=== PATIENT | male | born 1960 | race Caucasian/White ===

== ENCOUNTER 2016-11-27 15:03 | Inpatient (IN) | payer MEDICAID ==
[~2016-11-27] VITALS: Ht 170.2 cm; Wt 55.0 kg
[2016-11-27 15:12] VITALS: BP 103/54; PULSE 51; RESP 15; TEMP 97.9; O2SAT 97
[2016-11-27] MEDS ORDERED: SODIUM CHLORIDE 0.9% FLUSH 10 ML FLUSH IVF PRN (15:15)
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
[2016-11-27 15:26] VITALS: BP 103/54; PULSE 52; RESP 16; TEMP 97.9; O2SAT 98
--- NOTE | 2016-11-27 16:14 | RADRPT ---
EXAM DATE/TIME: 11/27/2016 16:06 [facility] COMPARISON: No previous studies available for comparison. INDICATIONS : Left side weakness for one day. RADIATION DOSE: 28.11 CTDIvol (mGy) MEDICAL HISTORY : Chronic obstructive pulmonary disease. SURGICAL HISTORY : None. ENCOUNTER: Initial ACUITY: 1 day PAIN SCALE: 0/10 LOCATION: cranial TECHNIQUE: Multiple contiguous axial images were obtained of the head. Using automated exposure control and adj ustment of the mA and/or kV according to patient size, radiation dose was kept as low as reasonably a chievable to obtain optimal diagnostic quality images. DICOM format image data is available electro nically for review and comparison. FINDINGS: CEREBRUM: Ill-defined hypodensity in the right basal ganglia centered about the posterior limb of the internal capsule. Mild diffuse cerebral atrophy. The ventricles are normal for degree of atrophy. No evidence of midline shift, mass lesion, hemorrhage or acute infarction. No extra-axial fluid collections are seen. POSTERIOR FOSSA: The cerebellum and brainstem are intact. The 4th ventricle is midline. The cerebellopontine angle i s unremarkable. EXTRACRANIAL: The visualized portion of the orbits is intact. SKULL: The calvaria is intact. No evidence of skull fracture. CONCLUSION: 1. Ill-defined hypodensity in the right basal ganglia centered about the posterior limb of internal c apsule which may reflect a lacunar infarct. Further evaluation may be performed with MRI if there is continued clinical uncertainty. Cisco ePte MD on November 27, 2016 at 16:09 Board Certified Radiologist. This report was verified electronically.
[2016-11-27 16:16] LABS: AUTOMATED NEUTROPHIL # 9.8 TH/MM3 (1.8-7.7); BASOPHIL % 0.3 % (0.0-2.0); EOSINOPHIL % 0.2 % (0.0-4.0); HEMATOCRIT 34.7 % (39.0-51.0); HEMO FLAGS DIFF FINAL; LYMPH % 10.2 % (9.0-44.0); LYMPHOCYTE # 1.3 TH/MM3 (1.0-4.8); MEAN CELL VOLUME 99.1 FL (80.0-100.0); MEAN CORPUSCULAR HGB CONC 35.3 % (32.0-36.0); MONO % 9.7 % (0.0-8.0); NEUT % 79.6 % (16.0-70.0); PLATELET COUNT 289 TH/MM3 (150-450); RED BLOOD COUNT 3.51 MIL/MM3 (4.50-5.90); RED CELL DISTRIBUTION WIDTH 12.8 % (11.6-17.2); WHITE BLOOD COUNT 12.4 TH/MM3 (4.0-11.0)
[2016-11-27 16:24] LABS: INTERNATIONAL NORMALIZED RATIO 0.9 RATIO; PROTHROMBIN TIME - PATIENT 9.9 SEC (9.8-11.6)
[2016-11-27 16:37] LABS: ALT (GPT) 21 U/L (12-78); ANION GAP 21 MEQ/L (5-15); AST (GOT) 36 U/L (15-37); BICARBONATE 17.2 MEQ/L (21.0-32.0); BLOOD UREA NITROGEN 70 MG/DL (7-18); CHLORIDE 86 MEQ/L (98-107); GLOMERULAR FILTRATION RATE 5 ML/MIN (>89); POTASSIUM 4.6 MEQ/L (3.5-5.1)
[2016-11-27 16:40] LABS: SODIUM (NA) 124 MEQ/L (136-145)
[2016-11-27 16:41] LABS: ALKALINE PHOSPHATASE 67 U/L (45-117); TOTAL BILIRUBIN ADULT 0.5 MG/DL (0.2-1.0)
[2016-11-27 17:09] LABS: CREATINE KINASE 776 U/L (39-308)
[2016-11-27] MEDS ORDERED: SODIUM CHLORID 0.9% 500 ML INJ 500 ML IV ONE ×2 (17:15→19:15)
[2016-11-27 17:22] LABS: CKMB 24.4 NG/ML (0.5-3.6)
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
[2016-11-27] MEDS ORDERED: SODIUM CHLORIDE 0.9% FLUSH 5 ML FLUSH IV FLUSH PRN (18:45)
[2016-11-27] MEDS ORDERED: LABETALOL HCL 100 MG/20 ML VIAL IV PRN (18:45)
[2016-11-27] MEDS ORDERED: DEXTROSE 50% IN WATER 50 ML VIAL(D50) IV PUSH PRN (18:45)
[2016-11-27] MEDS ORDERED: ASPIRIN 325 MG TAB PO ONE (18:45)
[2016-11-27] MEDS ORDERED: GLUCAGON 1 MG/ML VIAL OTHER PRN (18:45)
[2016-11-27] MEDS ORDERED: ONDANSETRON HCL 4 MG/2 ML VIAL IV PRN (19:15)
[2016-11-27] MEDS ORDERED: LORazepam 2 MG/ML VIAL IV PUSH PRN ×4 (19:15)
[2016-11-27] MEDS ORDERED: FLUMAZENIL 0.5 MG/5 ML VIAL IV PUSH PRN (19:15)
[2016-11-27] MEDS ORDERED: LORazepam 1 MG TAB PO PRN (19:15)
[2016-11-27] MEDS ORDERED: LORazepam 2 MG TAB PO PRN (19:15)
[2016-11-27 19:39] LABS: BACTERIA, URINE FEW /hpf; BLOOD, URINE SMALL (NEG); COMMENT (UR) CULTURE INDICATED; CULTURE IF INDICATED CULTURE INDICATED; GLUCOSE,URINE NEG (NEG); HYALINE CAST, URINE 99 /lpf (RARE); KETONE, URINE NEG (NEG); MUCUS URINE FEW /lpf (OCC); NITRITE,URINE NEG (NEG); SQUAMOUS EPITHELIAL CELL URINE <1 /hpf (0-5); URINE COLOR YELLOW (YELLW/STRAW)
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
[2016-11-27] MEDS: HEPARIN SODIUM - SQ 10,000 UNITS/ML VIAL SQ SCH (19:59)
[2016-11-27] MEDS: SODIUM CHLOR 0.9% 1000 ML INJ 1,000 ML IV SCH (19:59)
--- NOTE | 2016-11-27 20:31 | RADRPT ---
EXAM DATE/TIME: 11/27/2016 20:17 [facility] COMPARISON: No previous studies available for comparison. INDICATIONS : Patient fell last night- pain and numbness. MEDICAL HISTORY : None. SURGICAL HISTORY : None. ENCOUNTER: Initial ACUITY: 2 days PAIN SCORE: 10/10 LOCATION: Abdomen. FINDINGS: Supine view of the abdomen was performed. There are bowel anastomosis sutures in the left midabdomen and in the lower pelvis bilaterally. There is air within a mildly distended distal transverse colon measuring up to 6.5 cm in diameter. No other areas of potentially dilated bowel is seen. Free air is not seen. There is a calcified granuloma at the medial right lung base. CONCLUSION: Nonspecific bowel gas pattern with mild prominence of the distal transverse colon. Romel Pool MD on November 27, 2016 at 20:28 Board Certified Radiologist. This report was verified electronically.
--- NOTE | 2016-11-27 20:32 | RADRPT ---
EXAM DATE/TIME: 11/27/2016 20:06 [facility] COMPARISON: No previous studies available for comparison. INDICATIONS : Pain and numbness post fall. MEDICAL HISTORY : None. SURGICAL HISTORY : None. ENCOUNTER: Initial ACUITY: 1 day PAIN SCORE: 0/10 LOCATION: Neck. FINDINGS: Cervical spondylosis is noted at C5-C6 and to a lesser extent C4-C5 and C6-C7. No acute fracture or prevertebral soft tissue swelling is noted. The bony relationship and alignment between C1 and C2 is well maintained. CONCLUSION: 1. Cervical spondylosis at C5-C6 and to a lesser extent at C4-C5 and C6-C7. 2. No acute fracture or prevertebral soft tissue swelling. Benjy Murphy MD on November 27, 2016 at 20:29 Board Certified Radiologist. This report was verified electronically.
[2016-11-27] MEDS: INSULIN ASPART SUPPLEMENTAL SCALE SQ SCH (21:00)
[2016-11-27] MEDS: SODIUM CHLORIDE 0.9% FLUSH 5 ML FLUSH IV FLUSH SCH (21:00)
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
[2016-11-27 22:08] LABS: ALCOHOL LESS THAN 3 MG/DL (0-5)
[2016-11-27 23:29] LABS: CREATINE KINASE 733 U/L (39-308)
[2016-11-28] VITALS (12 sets, daily range): BP systolic 101–142; BP diastolic 58–71; PULSE 60–70; RESP 18–20; TEMP 98.1–99.4; O2SAT 96–100
[2016-11-28] MEDS: ATORVASTATIN 40 MG TAB PO SCH ×2 (00:18→22:54)
[2016-11-28] MEDS: cefTRIAXone INJ 1,000 MG in SODIUM CHLORIDE 0.9% INJ 100 ML IV SCH (02:18)
[2016-11-28] MEDS: HEPARIN SODIUM - SQ 10,000 UNITS/ML VIAL SQ SCH ×3 (02:20→18:10)
[2016-11-28 04:26] LABS: AUTOMATED NEUTROPHIL # 8.8 TH/MM3 (1.8-7.7); BASOPHIL # 0.1 TH/MM3 (0-0.2); BASOPHIL % 0.6 % (0.0-2.0); EOSINOPHIL % 0.2 % (0.0-4.0); HEMATOCRIT 33.4 % (39.0-51.0); HEMO FLAGS DIFF FINAL; LYMPH % 11.9 % (9.0-44.0); LYMPHOCYTE # 1.4 TH/MM3 (1.0-4.8); MEAN CELL VOLUME 100.7 FL (80.0-100.0); MEAN CORPUSCULAR HEMOGLOBIN 33.9 PG (27.0-34.0); MEAN CORPUSCULAR HGB CONC 33.6 % (32.0-36.0); NEUT % 76.3 % (16.0-70.0); PLATELET COUNT 256 TH/MM3 (150-450); RED BLOOD COUNT 3.32 MIL/MM3 (4.50-5.90); RED CELL DISTRIBUTION WIDTH 12.5 % (11.6-17.2); WHITE BLOOD COUNT 11.5 TH/MM3 (4.0-11.0)
[2016-11-28 04:47] LABS: BICARBONATE 16.9 MEQ/L (21.0-32.0); HDL CHOLESTEROL 39.3 MG/DL (40.0-60.0); POTASSIUM 4.3 MEQ/L (3.5-5.1)
[2016-11-28 05:18] LABS: CKMB 23.4 NG/ML (0.5-3.6)
[2016-11-28] MEDS: INSULIN ASPART SUPPLEMENTAL SCALE SQ SCH ×4 (06:11→22:55)
--- NOTE | 2016-11-28 07:01 | HHI.FPPN ---
Subjective Remarks Kosta Montiel edith 56yo gentleman with h/o HTN, tobacco abuse, and alcohol abuse admitted for left sided weakness involving his left upper and left lower extremities. The day prior to admission, he fell and hit the left side of his face. He endorses LOC, and then when he woke up 7 minutes later, he was unable to move the left side of his body and experienced numbness there. No difficulty with his speech, no changes in vision, no urinary incontinence. ROS: No chest pain, no SOB. + left sided weakness. PMH/PSxH/SocHx/FamHx: Per resident H&P. Significant for: HTN. Exp lap with colon resection / ostomy placement; subsequent colostomy reversal. Mother with CVA, father with alcohol abuse. Visiting from [place]. Smokes 1/2 - 1 PPD. Drinks 12 beers per day, with last drink yesterday morning. He does report a history of tremors with alcohol cessation sometimes. Polysubstance abuse (UDS + for cocaine, amphetamines, and opiates). Objective Vitals Vital Signs Date Time Temp Pulse Resp B/P (MAP) Pulse Ox O2 Delivery O2 Flow Rate FiO2 11/28/16 04:54 98 Nasal Cannula 2.00 11/28/16 04:00 98.4 70 20 118/62 (80) 98 11/28/16 03:05 64 11/28/16 00:00 98.1 63 20 113/58 (76) 99 11/27/16 15:26 97.9 52 16 103/54 (70) 98 Nasal Cannula 2.00 11/27/16 15:12 97.9 51 15 103/54 (70) 97 I/O 11/27/16 11/27/16 11/27/16 11/28/16 11/28/16 11/28/16 07:00 15:00 23:00 07:00 15:00 23:00 Intake Total 500 ml Balance 500 ml Intake IV Total 500 ml Result Diagram: 11/28/1633911/28/16 0340 Objective Remarks GENERAL: in NAD, no resp distress, nontoxic HEENT: NCAT, EOMI, no scleral icterus, no conjunctival injection. MMM. Edentulous. NECK: Supple, no carotid bruits. No meningeal signs. CV: RRR, S1 S2. No murmurs. CHEST/PULM: Coarse sounds initially, which clear after coughing. Mild end exp wheeze at bases. No retractions, no accessory muscle use. ABD/GI: +BS, soft, nontender, nondistended. EXT: 2+ DP pulses. No edema. No calf tenderness. : No CVAT. Sotelo catheter in place, draining clear yellow urine. NEURO: Awake, alert. 3/5 muscle strength in upper extremity and lower extremity. Left facial numbness. Cerebellum intact with finger to nose with right hand. SKIN: No rashes, no jaundice. PSYCH: Mood and affect are appropriate. Speech fluent. Does not appear to respond to internal stimuli. A/P Assessment and Plan Mr. Montiel is a 56 yo M who presents to [facility] with suspected left sided stroke and renal failure: Attending Attestation Patient seen, examined, and discussed with resident team. The patient has been seen and examined. The chart and all resident notes have been reviewed. I agree that inpatient care is appropriate and that a two midnight stay is expected for the reasons documented in the resident history and physical. I have discussed this with the resident and certify the resident s order for inpatient admission. Problem List: (1) CVA (cerebral vascular accident) ICD Codes: I63.9 - Cerebral infarction, unspecified Status: Acute Plan: Acute stroke. Imaging: * CT head 11/27/16: Ill-defined hypodensity in right basal ganglia centered about the posterior limb of the internal capsule which may reflect a lacunar infarct. * Brain MRI 11/27/16: acute infarction right basal ganglia; non-specific white- matter changes * Carotid artery US 11/27/16: Mild amount of plaque. No hemodynamically significant stenosis. * Head MRA 11/28/16: 1. Neither vertebral artery is identified. There are PICAs present, presumably the vertebrals terminate in a PICA. The basilar is not evident and presumed occluded/absent. This is possible congenital basis as both posterior cerebrals are sizable vessels. 2. The carotid circulation is widely patent. The anterior and middle cerebral circulation is widely patent. * Echo: pending Appreciate neurology and PM&R. PT/OT/Speech therapy evaluation. Lipid profile reviewed. On Statin. (2) Renal failure ICD Codes: N19 - Unspecified kidney failure Status: Acute Plan: Initial Cr 10.05 w/ BUN 70. Improved somewhat overnight. Cocaine, amphetamine abuse present on UDS Sotelo placed; ~300ml output initially. -Nephrology consulted; appreciate recs. -Will continue IVF at 70ml/hr until evaluation by Nephrology -Continue to trend BMP and CK Renal US: WNL. (3) HTN (hypertension) ICD Codes: I10 - Essential (primary) hypertension Plan: Impression: History of HTN on Atenolol and Lisinopril as an outpatient -Will allow permissive HTN at this time and use Labetalol for severe HTN w/ SBP >220mmHg (4) Alcoholism ICD Codes: F10.20 - Alcohol dependence, uncomplicated Status: Chronic Plan: Impression: Patient reports ~12 beers a night. MCV 99 on admission. No signs of withdrawal at this time -Will place on CIWA -Will give oral vitamin supplementation Of note, last drink 11/27/16 AM (5) Polysubstance abuse ICD Codes: F19.10 - Other psychoactive substance abuse, uncomplicated Status: Chronic Plan: Impression: No reported illicit substance use, but reports he was on "vacation". He denies any IV drug use. UDS positive for cocaine, amphetamines, and opiates -echocardiogram will evaluate for possible embolic process causing CVA and/or renal pathology (6) Abnormal urinalysis ICD Codes: R82.90 - Unspecified abnormal findings in urine Status: Acute Plan: Impression: UA with 36 WBC, few bacteria, nitrites negative, leukocyte esterase negative. Specimen catheterized; sotelo somewhat difficult to insert/ suggestive of possible prostatic enlargement WBC 12.4 on admission; anuria and Cr elevation on admission Continue Ceftriaxone until UCx negative. No growth on UCx x 24 hours. (7) Hyponatremia ICD Codes: E87.1 - Hypo-osmolality and hyponatremia Status: Acute Plan: Slowly improved from 124 to 126 this AM. Continue IV fluid and monitor. (8) Leukocytosis ICD Codes: D72.829 - Elevated white blood cell count, unspecified Status: Acute Plan: Likely stress response. Afebrile. Await UCx results, but UCx negative x 24 hours thus far. (9) Macrocytic anemia ICD Codes: D53.9 - Nutritional anemia, unspecified Status: Chronic Plan: Hgb stable. Suspect secondary to alcohol abuse. (10) Fluid, Electrolytes, and Nutrition Plan: Fluids: NaCl at 70ml/hr -management per Nephrology Nutrition: NPO until bedside swallow -> heart healthy diet (11) DVT PPX Plan: Heparin 5000 U q8hrs Bilateral SCD's Problem Qualifiers (1) CVA (cerebral vascular accident): Qualified Codes: I63.531 - Cerebral infarction due to unspecified occlusion or stenosis of right posterior cerebral artery (2) Renal failure: Qualified Codes: N17.9 - Acute kidney failure, unspecified (3) HTN (hypertension): Qualified Codes: I10 - Essential (primary) hypertension Deja Adams MD Nov 28, 2016 07:01
[2016-11-28] MEDS ORDERED: RESP: ALBUTEROL 2.5 MG/3 ML NEB (PRN) NEB (07:45)
[2016-11-28] MEDS ORDERED: RESP: ALBUTEROL 2.5 MG/3 ML NEB (SCH) NEB (08:00)
[2016-11-28] MEDS ORDERED: RESP: ALBUTEROL 2.5 MG/IPRATROPIUM 0.5 MG NEB (SCH) NEB (08:00)
[2016-11-28] MEDS: SODIUM CHLORIDE 0.9% FLUSH 5 ML FLUSH IV FLUSH SCH ×2 (09:53→22:55)
[2016-11-28] MEDS: SODIUM CHLOR 0.9% 1000 ML INJ 1,000 ML IV SCH (09:53)
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
[2016-11-28] MEDS: FOLIC ACID 1 MG TAB PO SCH (09:54)
[2016-11-28] MEDS: ASPIRIN 81 MG CHEW TAB PO SCH (09:54)
[2016-11-28] MEDS: THIAMINE HCL 100 MG TAB PO SCH (09:54)
[2016-11-28] MEDS: MULTIVITAMINS/MINERALS THERAPEUTIC TAB PO SCH (09:54)
--- NOTE | 2016-11-28 10:08 | RADRPT ---
EXAM DATE/TIME: 11/28/2016 09:31 [facility] COMPARISON: No previous studies available for comparison. INDICATIONS : Cough, congestion, shortness of breath MEDICAL HISTORY : Hypertension. Chronic obstructive pulmonary disease. Stroke. Smoker. SURGICAL HISTORY : None. ENCOUNTER: Subsequent ACUITY: 3 days PAIN SCORE: 2/10 LOCATION: chest midline. FINDINGS: A single view of the chest demonstrates the lungs to be symmetrically aerated without evidence of mas s, infiltrate or effusion. The cardiomediastinal contours are unremarkable. Osseous structures are intact. Multiple overlying electrocardiogram leads. There is an old fracture deformity of the left mi dclavicle. There is a mild scoliosis of the thoracic and lumbar spine. CONCLUSION: No acute disease. Dragan Chisholm MD on November 28, 2016 at 10:06 Board Certified Radiologist. This report was verified electronically.
[2016-11-28 10:56] LABS: HEMOGLOBIN A1a 1.3 %; HEMOGLOBIN A1b 1.5 %; HEMOGLOBIN Ao 84.6 %; HEMOGLOBIN F 0.3 %; HEMOGLOBIN P3 3.9 %
--- NOTE | 2016-11-28 12:53 | PD.CONS ---
[facility] Service Rehabilitation Medicine Consult Requested By Dr. David Reason for Consult Comprehensive rehabilitation evaluation. Primary Care Physician Non-Staff History of Present Illness Kosta Montiel is 56-year-old [id number] male admitted [facility] 11/27/16 with left-sided weakness which began 1 day prior to admission. During the time that he had left-sided weakness he reported several falls. Head CT showed ill-defined hypodensity in the right basal ganglia centered around the posterior limb of the internal capsule area He was noted to have renal failure with creatinine of 10 and BUN 70. He received IV fluids. Was also noted to be hyponatremic. Carotid ultrasound showed no hemodynamically significant stenosis. Brain MRI showed right basal ganglia infarct. UDS was positive for cocaine, amphetamine and opiate. Review of Systems Constitutional: DENIES: Fatigue Eyes: COMPLAINS OF: Blurred vision, DENIES: Diplopia Ears, nose, mouth, throat: DENIES: Throat pain Respiratory: DENIES: Shortness of breath Cardiovascular: COMPLAINS OF: Chest pain (with palpation over the sternum) Gastrointestinal: COMPLAINS OF: Constipation, DENIES: Abdominal pain Genitourinary: DENIES: Urinary incontinence Musculoskeletal: COMPLAINS OF: Joint pain (right great toe) Integumentary: DENIES: Pruritus Hematologic/lymphatic: DENIES: Bruising Immunologic/allergic: DENIES: Urticaria Neurologic: COMPLAINS OF: Localized weakness, Paresthesias, DENIES: Headache ( mild), Speech Problems Psychiatric: DENIES: Confusion Past Family Social History Allergies: Coded Allergies: No Known Allergies (Unverified , 11/27/16) Past Medical History Hypertension Insomnia Polysubstance abuse Past Surgical History Exploratory laparotomy with colon resection/colostomy with subsequent reversal Current Medications Current Medications Medications (Trade) Dose Ordered Sig/Mansi Route Start Time Stop Time Status Last Admin (NS Flush) 2 ml BID IV FLUSH 11/27/16 21:00 11/28/16 09:53 (NS Flush) 2 ml UNSCH PRN IV FLUSH 11/27/16 18:45 (Trandate Inj) 10 mg Q2H PRN IV 11/27/16 18:45 (Aspirin Chew) 162 mg DAILY PO 11/28/16 09:00 11/28/16 09:54 (NovoLOG SUPPLEMENTAL SCALE) 1 ACHS SQ 11/27/16 21:00 (D50w (Vial) Inj) 50 ml UNSCH PRN IV PUSH 11/27/16 18:45 (Glucagon Inj) 1 mg UNSCH PRN OTHER 11/27/16 18:45 (Heparin Inj) 5,000 units Q8H SQ 11/27/16 19:00 11/28/16 11:58 (Folate) 1 mg DAILY PO 11/28/16 09:00 12/03/16 08:59 11/28/16 09:54 (Vitamin B1) 100 mg DAILY PO 11/28/16 09:00 11/28/16 09:54 (Theragran M Tab) 1 tab DAILY PO 11/28/16 09:00 12/03/16 08:59 11/28/16 09:54 (Zofran Inj) 4 mg Q6H PRN IV 11/27/16 19:15 (Romazicon Inj) 0.2 mg Q1M PRN IV PUSH 11/27/16 19:15 (Ativan) 1 mg Q4H PRN PO 11/27/16 19:15 (Ativan Inj) 1 mg Q4H PRN IV PUSH 11/27/16 19:15 (Ativan) 2 mg Q2H PRN PO 11/27/16 19:15 (Ativan Inj) 2 mg Q2H PRN IV PUSH 11/27/16 19:15 (Ativan Inj) 2 mg Q1H PRN IV PUSH 11/27/16 19:15 (Ativan Inj) 2 mg Q15M PRN IV PUSH 11/27/16 19:15 (Lipitor) 40 mg HS PO 11/27/16 21:00 11/28/16 00:18 Ceftriaxone Sodium 1000 mg/ Sodium Chloride 100 ml @ 200 mls/hr Q24H IV 11/28/16 02:00 11/28/16 02:18 (Albuterol Neb) 2.5 mg Q2HR NEB PRN NEB 11/28/16 07:45 (Duoneb Neb) 1 ampule Q8HR WHILE AWAKE NEB NEB 11/28/16 08:00 (Albuterol Neb) 2.5 mg Q8HR ALT NEB NEB 11/28/16 12:00 Sodium Bicarbonate 9457.5 meq/Sodium Chloride 1,075 ml @ 70 mls/hr [id number] IV 11/28/16 19:00 (Oscal-D 250-125) 500 mg Q12HR PO 11/28/16 21:00 Family History Mother: , stroke Father: , stroke/EtOH Social History Prior to admission patient was living in [place]. His brother lives here in [place]. Patient was independent with mobility and ADLs and was working in [employer] prior to admission. He reports smoking a half pack per day for the last 25 years. He drinks 6-12 beers per day and reports that his cocaine use is occasional. Exam I&O / VS Vital Signs Date Time Temp Pulse Resp B/P (MAP) Pulse Ox O2 Delivery O2 Flow Rate FiO2 11/28/16 11:55 98.6 60 18 101/58 (72) 100 11/28/16 11:15 100 21 11/28/16 08:12 98.2 62 18 119/60 (79) 98 11/28/16 04:54 98 Nasal Cannula 2.00 11/28/16 04:00 98.4 70 20 118/62 (80) 98 11/28/16 03:05 64 11/28/16 00:00 98.1 63 20 113/58 (76) 99 11/27/16 15:26 97.9 52 16 103/54 (70) 98 Nasal Cannula 2.00 11/27/16 15:12 97.9 51 15 103/54 (70) 97 General: No acute distress Respiratory: Lungs CTA, Non-labored respirations, BS equal, Coarse breath sounds Gastrointestinal: Positive Bowel Sounds, Non-Distended, Non-Tender Cardiovascular: Normal rate, Normal peripheral perfusion, Regular Rhythm Skin: Other (no rash noted) Musculoskeletal: Swelling (right great toe) Psychiatric: Cooperative, Appropriate mood & affect Orientation: oriented to Self, oriented to Place, oriented to Time, oriented to Situation Neurologic: Cranial Nerves (grossly intact 2 through 12), EOM (intact), Facial Symmetry (mild left facial droop), Speech (mild dysarthria), Neglect (none noted ) Motor: Right Upper Extremity (5/5), Left Upper Extremity (government affairs researcher 3/5; elbow flexion 2/5), Right Lower Extremity (5/5), Left Lower Extremity Spasticity None Sensory Absent in the left upper and lower extremity DTRs: Normal Babinski: Positive (an equivocal left) Clonus: Negative Assessment and Plan Diagnosis: (1) CVA (cerebral vascular accident) ICD Codes: I63.9 - Cerebral infarction, unspecified Status: Acute Qualifiers: CVA mechanism: thrombosis Precerebral and cerebral artery: middle cerebral artery Laterality of affected vessel: right Qualified Codes: I63.311 - Cerebral infarction due to thrombosis of right middle cerebral artery Assessment 1. Right basal ganglia infarct with left hemiplegia and left hemisensory impairment 2. Impaired mobility and ADLs due to above 3. Hypertension 4. Polysubstance abuse 5. Renal failure 6. Hyponatremia 7. Anemia Plan 1. Physical therapy evaluation is in process. Would mobilize as tolerated anticipating the patient should progress 2. Occupational therapy for left upper extremity facilitation and ADL training 3. Speech therapy for swallow evaluation 4. Currently on subcutaneous heparin for DVT prophylaxis 5. Monitor skin carefully 6. Will follow regarding ongoing rehabilitation needs at discharge. Anticipate the patient will return home to [place] with the assistance of his brother 7. Will follow-up hospitalized Thank you for this consult Farzana Contreras MD Nov 28, 2016 12:53
--- NOTE | 2016-11-28 14:13 | EKG ---
Date Performed: 11/27/2016 Time Performed: 15:21:35 PTAGE: 56 years EKG: SINUS BRADYCARDIA ST ELEVATION, PROBABLY EARLY REPOLARIZATION BORDERLINE ECG NO PREVIOUS TRACING DOCTOR: Stacey Sr Interpretating Date/Time 11/28/2016 14:08:02
--- NOTE | 2016-11-28 16:28 | ECHRPT ---
Indication: CVA/TIA CONCLUSIONS The left ventricular systolic function is normal with an estimated ejection fraction in the range of 55-60%. No definite regional wall motion abnormalities. Wall thickness is measured at the upper limits of normal. Normal left ventricular size. There is trace tricuspid valve regurgitation. The estimated pulmonary arterial pressure is 23 mmHg. BP: 118 / 62 HR: 70 Rhythm: Sinus MEASUREMENTS (Male / Female) Normal Values Technical Quality:Technically difficult study 2D ECHO LV Diastolic Diameter PLAX 4.6 cm 4.2 - 5.9 / 3.9 - 5.3 cm LV Systolic Diameter PLAX 3.4 cm IVS Diastolic Thickness 1.1 cm 0.6 - 1.0 / 0.6 - 0.9 cm LVPW Diastolic Thickness 1.1 cm 0.6 - 1.0 / 0.6 - 0.9 cm LV Relative Wall Thickness 0.5 LVOT Diameter 2.1 cm M-MODE Aortic Root Diameter MM 3.0 cm LA Systolic Diameter MM 2.7 cm LA Ao Ratio MM 0.9 AV Cusp Separation MM 2.2 cm DOPPLER AV Peak Velocity 126.0 cm/s AV Peak Gradient 6.4 mmHg LVOT Peak Velocity 73.5 cm/s LVOT Peak Gradient 2.2 mmHg AV Area Cont Eq pk 2.0 cm Mitral E Point Velocity 88.4 cm/s Mitral A Point Velocity 42.4 cm/s Mitral E to A Ratio 2.1 LV E' Lateral Velocity 15.1 cm/s Mitral E to LV E' Lateral Ratio 5.9 LV E' Septal Velocity 10.5 cm/s Mitral E to LV E' Septal Ratio 8.4 TR Peak Velocity 210.0 cm/s TR Peak Gradient 17.6 mmHg FINDINGS LEFT VENTRICLE The left ventricular systolic function is normal with an estimated ejection fraction in the range of 55-60%. Wall thickness is measured at the upper limits of normal. Normal left ventricular size. RIGHT VENTRICLE Normal right ventricular size and systolic function. LEFT ATRIUM The left atrial size is normal. RIGHT ATRIUM The right atrial size is normal. ATRIAL SEPTUM Normal atrial septal thickness without atrial level shunting by limited color doppler interrogation. AORTA The aortic root and proximal ascending aorta are normal in size on limited imaging. MITRAL VALVE Structurally normal mitral valve. No mitral valve stenosis or regurgitation. AORTIC VALVE Trileaflet aortic valve. No aortic valve stenosis or regurgitation. TRICUSPID VALVE There is trace tricuspid valve regurgitation. The estimated pulmonary arterial pressure is 23 mmHg. PULMONARY VALVE The pulmonary valve is not well visualized. VESSELS The inferior vena cava is normal in size. PERICARDIUM No pericardial effusion. Mahad Fernandez MD (Electronically Signed) Final Date:28 November 2016 16:27
[2016-11-28] MEDS ORDERED: DEXTROSE 50% IN WATER 50 ML SYRINGE IV PUSH PRN (16:45)
[2016-11-28] MEDS: SODIUM BICARBONATE 8.4% INJ 75 MEQ in SODIUM CHLOR 0.45% 1000 ML INJ 1,000 ML IV SCH (18:09)
--- NOTE | 2016-11-28 18:13 | HHI.FPPN ---
Addendum to progress note ADDENDUM Reason for addendum: Additonal documentation Additional information Recent is a 56-year-old male, with past medical history of high blood pressure, tobacco abuse, alcohol abuse, who was admitted on 11/27/16, for a CVA. This has resulted in left-sided upper and lower extremity weakness. A brain MRI on 11/27/16, showed an acute infarct of the right basal ganglia. The residents were called about hypoglycemia, on routine before meals and at bedtime Accu-Cheks, the nurse got a blood sugar of 45. He was complaining of being drowsy at this time. The nurse initiated the hypoglycemic protocol, and gave 1 amp (50 ml) of IV D50W. His blood glucose then corrected to 163. This was at 17:10. He was also given orange juice at this time. He was given a mechanical soft, cardiac diet on 11/28/[address] David. Subjective: Sleeping initially on exam. He denies any increased confusion, though he states he is always confused. He denies any new numbness or weakness. He denies any sweating, tremors, or palpitations. In general, he is comfortable. He had no questions for our team. Objective: Vital signs: 99.4 Fahrenheit, 68 bpm, 18 RR, blood pressure 116/63, satting at 96% on room air. Gen.: Appears comfortable, alert, oriented 3, to person, place, month, and year. HEENT: Decreased sensation over all branches of the trigeminal nerve on the left , otherwise cranial nerves intact. Edentulous. Cardiovascular: Regular rate and rhythm, pulses equal to all extremities. RESP: CTAB posteriorly GI: Soft Neuro: CN grossly intact, PERRL EOMI, 2/5 strength in both upper and lower LEFT extremities. Minimal movement against gravity. Assessment / Plan: 1) Hypoglycemia Speech therapy recommended mechanical soft diet (chopped meat with extra gravy and thin liquids). Bedside glucose after 1 amp of D50W corrected from 45 --> 163. Continue hypoglycemia protocol. Will check BG q 2 hours. If > 80 x 2, will transition to q 4 hours overnight. Hold Low dose sliding scale. Patient reports good appetite and plans to eat pasta tonight for dinner. Spoke with Hallie (RN) and she understands the plan going forward. 2) CVA No new deficits on exam. AOO x 3. Continue with PT/OT/ and ST recs, ASA 162 mg daily, heparin 5,000 units q 8 hours. 3) EtOH Dependence CIWA protocol in place. Continue to monitor. MATYW Dr. Jean Baptiste. Abrahan Campbell MD, R3 Nov 28, 2016 18:13
--- NOTE | 2016-11-28 22:05 | MB ---
cc: DARRIUS LANTIGUA M.D. DATE OF CONSULTATION 11/28/2016 HISTORY The patient is a 56-year-old seen in neurological consultation with history of left-sided weakness. He fell. The day before yesterday and subsequently noted to have left-sided weakness. He has had a history of dizziness in the past few months. The patient came to the hospital yesterday and observed to have left-sided weakness. He has a history of a hypertension, apparently on lisinopril and atenolol but does not take any aspirin or blood thinners. No history of a stroke, TIAs or seizures. He is a chronic smoker and apparently drinks 12 beers a day. NEUROLOGICAL EXAMINATION Showed the patient to be an awake, alert, oriented, pleasant, cooperative. He has severe left hemiparesis. His left arm proximally is 3/5 and distally is 2/5. His left leg proximally is 1-2/5 and distally is 0/5. There is left-sided hemisensory deficits as well. He moves the right-sided limbs strongly. Reflexes probably slightly brisker on the left with bilateral plantar extensors, more obvious on the left than right. IMAGING The MRI brain showed lacunar on the right basal ganglia. This is acute. The carotid ultrasound showed no significant disease bilaterally. LABORATORY DATA The CBC includes a white count 11.5, hemoglobin 11.2, platelets 256. Chemistry today sodium 126, potassium 4.3, BUN 71, creatinine 7.56, magnesium 2.7, calcium 7.6. CPK 708. ASSESSMENT Acute stroke, left hemiparetic, with hemisensory deficit and some moderately severe dysarthric speech. There was no visual field loss, but he has some sensory loss on the left side. Aspirin. MRA pending. Checking a lipid profile. Echocardiogram. EKG is sinus rhythm. Renal failure. Hypertension. Alcoholism. Polysubstance abuse with screening positive for cocaine and amphetamines and opiate. I will follow the neurological course. Thank you for asking us to assist in his care. MD TUNDE Mckeon/JORGE /9:08 AM /9:43 PM
[2016-11-28] MEDS: CALCIUM/VITAMIN D 250 MG/125 U TAB PO SCH (22:54)
[2016-11-29] VITALS (12 sets, daily range): BP systolic 117–173; BP diastolic 59–84; PULSE 62–78; RESP 18–20; TEMP 97.3–99.9; O2SAT 92–100
[2016-11-29] MEDS: HEPARIN SODIUM - SQ 10,000 UNITS/ML VIAL SQ SCH ×3 (02:01→17:58)
[2016-11-29] MEDS: cefTRIAXone INJ 1,000 MG in SODIUM CHLORIDE 0.9% INJ 100 ML IV SCH (02:02)
[2016-11-29] MEDS: RESP: ALBUTEROL 2.5 MG/3 ML NEB (SCH) NEB ×3 (05:00→20:17)
[2016-11-29] MEDS: INSULIN ASPART SUPPLEMENTAL SCALE SQ SCH ×5 (06:37→20:13)
--- NOTE | 2016-11-29 07:29 | MB ---
cc: JULITO ALVAREZ MD DATE OF CONSULTATION: 11/28/2016 REASON FOR CONSULTATION Elevated BUN and creatinine, for evaluation. HISTORY OF PRESENT ILLNESS This is a 56-year-old male with past medical history of alcoholism, hypertension, seizure disorder, came to the hospital with complaint of left arm and left leg weakness. I was called to see the patient because of elevated BUN and creatinine. The patient was found to have creatinine of 10.0 yesterday. He denies any previous known history of renal disease. The patient has this weakness in the left arm and left leg which started 2 days ago. He stayed home for that day and came here yesterday. He denies any history of trauma. The patient lives alone at home. He has chronic back pain and pain in the legs. He has been taking Ibuprofen for that on a regular basis. He has history of hypertension, was seen by physician in [place] and he was given lisinopril and Atenolol but he was not taking it regularly. He denies any nausea or vomiting. His appetite is good but he does not have enough food at home, according to the patient. He does not have any dysuria, hematuria or difficulty passing urine but currently has a Perez catheter. PAST MEDICAL HISTORY 1. Hypertension. 2. Alcoholism. 3. Insomnia. 4. Possible chronic kidney disease. PAST SURGICAL HISTORY History of laparotomy with colonic resection and colostomy with subsequent reversal. REVIEW OF SYSTEMS The patient has generalized weakness, feeling tired, has weakness in the left side, not able to walk. There is no history of trauma or syncope or falling down. No dizziness. No headache. No shortness of breath. He has chronic back pain and pain in the leg, has been taking ibuprofen regularly. There is no history of dysuria, hematuria or difficulty passing urine. SOCIAL HISTORY The patient is single. He is visiting from [place]. He smokes about half-pack per day and history of drinking beer, up to 12 beers a day. ALLERGIES No known drug allergies. MEDICATIONS Currently he is on the following medications: 1. Normal saline at 17-hour. 2. Insulin aspart sliding scale. 3. Albuterol nebulizer. 4. Aspirin 162 mg daily. 5. Folic acid 1 mg daily. 6. Thiamine 100 mg daily. 7. Multivitamin one tablet daily. 8. Lipitor 40 mg q.h.s. 9. Ceftriaxone 1 gram IV q. 24-hour. 10. Heparin 5000 units subcu q. 8-hour. 11. DuoNeb nebulizer. 12. Labetalol as needed. 13. Lorazepam as needed. EXAMINATION GENERAL: The patient is awake, alert. He is not in acute distress. VITAL SIGNS: His last blood pressure is 119/60, temperature is 98.2, oxygen saturation 98% on 2 liters nasal cannula. His blood pressure has been in normal range or on the lower side since he was admitted. HEENT: The pupils are mid constricted. Nonicteric sclerae. Conjunctivae are pale. NECK: Supple. JVD is not elevated. LUNGS: The patient has bilateral good air entry with occasional wheezing. HEART: S1, S2 regular rhythm. ABDOMEN: Soft, lax. There is no tenderness. Bowel sounds positive. EXTREMITIES: There is no pedal edema. INVESTIGATION WBC count is 11.5 with hemoglobin of 11.2, platelet count of 256, sodium 126, potassium 4.3, chloride 93, bicarb 16.9. BUN 71, creatinine 7.5, calcium 7.6, magnesium 2.7, creatinine kinase 708, cholesterol 130, LDL 66, HDL 39.3 total protein is 8.3 with albumin of 4.4, INR 0.9. Toxicology screen was positive for opiates, amphetamines and cocaine. Urinalysis showing protein of 30 with RBC 5 and WBC 36. Urine culture is pending. IMAGING STUDIES The patient has a chest x-ray done which shows lung ayoub clear. MRA of the brain was done which shows carotid circulation is widely patent, vertebral arteries are not identified, PICA both are present, possibility congenital anomoly. CT scan of the brain was done which showed that he has ill-defined hypodensity in the right basal ganglia centered in the posterior limb of the internal capsule. Ultrasound of the kidney was done which showed both kidneys are normal in size and there is no hydronephrosis. ASSESSMENT/PLAN 1. Acute kidney injury. 2. Hyponatremia. 3. Metabolic acidosis. 4. Acute stroke. 5. Possible urinary tract infection. 6. Elevated CPK, possible rhabdo. The patient has acute kidney injury with the possibility of some chronic kidney disease. His creatinine was very high when he was admitted, most likely he has an element of acute kidney injury either because of dehydration or possibility of rhabdomyolysis. His CPK was high and is improving. The patient has been nonoliguric, the creatinine is improving. His sodium is still low and the bicarb is low. I will change IV fluid and give him some bicarb and his calcium is low and he will need some replacement. I will also check the phosphorus level. Thank you for the consultation and I will follow the patient while he is in the hospital. MD MAC LeslieJ/TLL /10:14 AM /6:57 AM
[2016-11-29] MEDS: RESP: ALBUTEROL 2.5 MG/IPRATROPIUM 0.5 MG NEB (SCH) NEB ×3 (07:52→15:08)
[2016-11-29] MEDS: CALCIUM/VITAMIN D 250 MG/125 U TAB PO SCH ×2 (08:16→20:12)
[2016-11-29] MEDS: SODIUM CHLORIDE 0.9% FLUSH 5 ML FLUSH IV FLUSH SCH ×2 (08:17→20:13)
[2016-11-29] MEDS: THIAMINE HCL 100 MG TAB PO SCH (08:17)
[2016-11-29] MEDS: ASPIRIN 81 MG CHEW TAB PO SCH (08:17)
[2016-11-29] MEDS: FOLIC ACID 1 MG TAB PO SCH (08:17)
[2016-11-29] MEDS: MULTIVITAMINS/MINERALS THERAPEUTIC TAB PO SCH (08:17)
--- NOTE | 2016-11-29 09:32 | HHI.FPPN ---
Subjective Remarks Pt lying comfortably in bed, has no new complaints. He has not been eating well because he says that the food does not taste good to him. We discussed the importance of eating so that he can have strength to do physical therapy exercises. Interval History: On 11/28, residents were called about hypoglycemia, on routine before meals and at bedtime Accu-Cheks, the nurse got a blood sugar of 45. He was complaining of being drowsy at this time. Patient's nurse initiated the hypoglycemic protocol, and gave him 1 amp (50 ml) of IV D50W. His blood glucose then corrected to 163. This was at 17:10. He was also given orange juice at that time. This morning, patient's Accu-Chek glucose results have been 83, 114, 92, and 150. Patient's nurse states that he has not been eating much because the food does not taste good to him. (EkoBeverly MD R2) Objective Vitals Vital Signs Date Time Temp Pulse Resp B/P (MAP) Pulse Ox O2 Delivery O2 Flow Rate FiO2 11/29/16 08:08 99.4 65 18 117/59 (78) 96 11/29/16 07:54 92 21 11/29/16 07:19 62 11/29/16 04:35 98.7 65 18 155/75 (101) 96 11/29/16 00:55 96 11/29/16 00:10 99.9 64 18 126/65 (85) 97 11/28/16 23:00 66 11/28/16 20:50 98.5 66 18 142/71 (94) 100 11/28/16 16:01 96 21 11/28/16 15:53 99.4 68 18 116/63 (80) 96 11/28/16 11:55 98.6 60 18 101/58 (72) 100 11/28/16 11:15 100 21 I/O 11/28/16 11/28/16 11/28/16 11/29/16 11/29/16 11/29/16 07:00 15:00 23:00 07:00 15:00 23:00 Intake Total 1228 ml Output Total 900 ml 650 ml 1400 ml Balance -900 ml -650 ml -172 ml Intake Oral 480 ml IV Total 748 ml Output Urine Total 900 ml 650 ml 1400 ml # Bowel Movements 1 (EkoKarliBeverly U MD R2) Result Diagram: 11/28/16 0340 11/28/16 1814 Objective Remarks GENERAL: in NAD, no resp distress, nontoxic HEENT: NCAT, EOMI, no scleral icterus, no conjunctival injection. MMM. NECK: Supple, no meningeal signs. CV: RRR, S1 S2. No murmurs. CHEST/PULM: CTAB No retractions, no accessory muscle use. ABD/GI: +BS, soft, nontender, nondistended. EXT: 2+ DP pulses. No edema. No calf tenderness. : No CVAT. Perez catheter in place, draining clear yellow urine. NEURO: Awake, alert. 3/5 muscle strength in left upper extremity and lower extremity. No sensation in fingers of left hand. Some sensation over left arm and forearm SKIN: No rashes, no jaundice. PSYCH: Mood and affect are appropriate. Speech fluent. (Beverly Lala MD R2) A/P Assessment and Plan Mr. Montiel is a 56 yo M who presents to [facility] ED with suspected left sided stroke and renal failure: creatinine was 10.05 on admission but has resolved to 1.22 on 11/29. Discharge Planning Pending clinical improvement. Patient has poor po intake and is at risk for an adverse hypoglycemic event. He is self-pay from [id number] which adds a level of difficulty to making disposition arrangements. However, patient wants to leave the hospital on 11/30 with his brother to return to [place] (Beverly Lala MD R2) Attending Attestation Patient seen and examined, discussed with Dr. Lala. I agree with assessment and management as documented and discussed with me. Pt reports no improvement in his muscle strength overnight. He reports he plans to leave soon to [place]. (Deja Adams MD) Problem List: (1) CVA (cerebral vascular accident) ICD Codes: I63.9 - Cerebral infarction, unspecified Status: Acute Plan: Acute ischemic stroke * Continue aspirin 162 mg by mouth daily * Atorvastatin 40 mg by mouth at bedtime * Appreciate neurology and PM&R * PT/OT/Speech therapy evaluation: * PT: Recommend PT at rehabilitation * OT: Recommend OT at rehabilitation * ST: Recommend mechanical soft with chopped meats and thin liquids, patient will request speech therapy after discharge Imaging: * CT head 11/27/16: Ill-defined hypodensity in right basal ganglia centered about the posterior limb of the internal capsule which may reflect a lacunar infarct. * Brain MRI 11/27/16: acute infarction right basal ganglia; non-specific white- matter changes * Carotid artery US 11/27/16: Mild amount of plaque. No hemodynamically significant stenosis. * Head MRA 11/28/16: 1. Neither vertebral artery is identified. There are PICAs present, presumably the vertebrals terminate in a PICA. The basilar is not evident and presumed occluded/absent. This is possible congenital basis as both posterior cerebrals are sizable vessels. 2. The carotid circulation is widely patent. The anterior and middle cerebral circulation is widely patent. * Echo: 11/28/16: Normal left ventricular systolic function with EF of 55-60%, no definite regional wall motion abnormalities, normal left ventricular size (2) Renal failure ICD Codes: N19 - Unspecified kidney failure Status: Acute Plan: Initial Cr 10.05 w/ BUN 70. Improved to 1.2 to on 11/29 Cocaine, amphetamine abuse present on UDS Perez placed; ~300ml output initially. -Nephrology consulted; appreciate recs. -Switched to sodium bicarbonate at 70 mLs per hour per nephrology -Continue to trend BMP and CK Renal US: WNL. (3) HTN (hypertension) ICD Codes: I10 - Essential (primary) hypertension Plan: Impression: History of HTN on Atenolol and Lisinopril as an outpatient -Mostly normotensive on 11/29, continue to monitor (4) Alcoholism ICD Codes: F10.20 - Alcohol dependence, uncomplicated Status: Chronic Plan: Impression: Patient reports ~12 beers a night. MCV 99 on admission. No signs of withdrawal at this time -Continue CIWA protocol, most recent scores of 0 -Will give oral vitamin supplementation Of note, last drink 11/27/16 AM (5) Polysubstance abuse ICD Codes: F19.10 - Other psychoactive substance abuse, uncomplicated Status: Chronic Plan: Impression: No reported illicit substance use, but reports he was on "vacation". He denies any IV drug use. UDS positive for cocaine, amphetamines, and opiates -Normal echo (6) Abnormal urinalysis ICD Codes: R82.90 - Unspecified abnormal findings in urine Status: Acute Plan: Impression: UA with 36 WBC, few bacteria, nitrites negative, leukocyte esterase negative. Specimen catheterized WBC 12.4 on admission; anuria and Cr elevation on admission Continue Ceftriaxone until UCx negative. No growth on UCx x 48 hours (7) Hyponatremia ICD Codes: E87.1 - Hypo-osmolality and hyponatremia Status: Acute Plan: Slowly improved from 124 to 129 this AM. Continue IV fluid and monitor. (8) Macrocytic anemia ICD Codes: D53.9 - Nutritional anemia, unspecified Status: Chronic Plan: Hgb stable. Suspect secondary to alcohol abuse. (9) Fluid, Electrolytes, and Nutrition Plan: Fluids: Bicarbonate at 70ml/hr -management per Nephrology Nutrition: Per speech therapy recs, dietary consulted to help secondary to patient's poor by mouth intake (10) DVT PPX Plan: Heparin 5000 U q8hrs Bilateral SCD's (Beverly Lala MD R2) Problem Qualifiers (1) CVA (cerebral vascular accident): Qualified Codes: I63.311 - Cerebral infarction due to thrombosis of right middle cerebral artery (2) Renal failure: Qualified Codes: N17.9 - Acute kidney failure, unspecified (3) HTN (hypertension): Qualified Codes: I10 - Essential (primary) hypertension Beverly Lala MD R2 Nov 29, 2016 09:32 Deja Adams MD Nov 29, 2016 21:10
[2016-11-29 12:42] LABS: BASOPHIL % 0.2 % (0.0-2.0); EOSINOPHIL % 0.2 % (0.0-4.0); HEMATOCRIT 30.9 % (39.0-51.0); HEMO FLAGS DIFF FINAL; LYMPH % 11.3 % (9.0-44.0); LYMPHOCYTE # 1.1 TH/MM3 (1.0-4.8); MEAN CELL VOLUME 99.2 FL (80.0-100.0); MEAN CORPUSCULAR HEMOGLOBIN 34.5 PG (27.0-34.0); MEAN CORPUSCULAR HGB CONC 34.7 % (32.0-36.0); MONO % 13.1 % (0.0-8.0); NEUT % 75.2 % (16.0-70.0); PLATELET COUNT 250 TH/MM3 (150-450); RED BLOOD COUNT 3.11 MIL/MM3 (4.50-5.90); RED CELL DISTRIBUTION WIDTH 12.6 % (11.6-17.2); WHITE BLOOD COUNT 9.3 TH/MM3 (4.0-11.0)
[2016-11-29 13:04] LABS: BICARBONATE 24.5 MEQ/L (21.0-32.0); POTASSIUM 4.8 MEQ/L (3.5-5.1)
[2016-11-29] MEDS: SODIUM BICARBONATE 8.4% INJ 75 MEQ in SODIUM CHLOR 0.45% 1000 ML INJ 1,000 ML IV SCH (13:34)
--- NOTE | 2016-11-29 16:08 | HHI.NPPN ---
Subjective History of Present Illness 56-year-old male with past medical history of alcoholism, hypertension, seizure disorder, came to the hospital with complaint of left arm and left leg weakness. I was called to see the patient because of elevated BUN and creatinine. Additional Remarks Patient is alert, still not eating well, no nausea, no SOB. Review of Systems General Constitutional: Fatigue Respiratory Lungs: SOB, Wheeze Cardiovascular Cardiac: WATSON Objective Data Data 11/29/16 11/30/16 19:00 07:00 Intake Total 719 ml Output Total 950 ml Balance -231 ml Intake Oral 240 ml IV Total 479 ml Output Urine Total 950 ml # Bowel Movements 1 Vital Signs Date Time Temp Pulse Resp B/P (MAP) Pulse Ox O2 Delivery O2 Flow Rate FiO2 11/29/16 16:04 97.3 64 18 154/69 (97) 99 11/29/16 12:05 98.0 62 18 137/67 (90) 97 11/29/16 08:08 99.4 65 18 117/59 (78) 96 11/29/16 07:54 92 21 11/29/16 07:19 62 11/29/16 04:35 98.7 65 18 155/75 (101) 96 11/29/16 00:55 96 11/29/16 00:10 99.9 64 18 126/65 (85) 97 11/28/16 23:00 66 11/28/16 20:50 98.5 66 18 142/71 (94) 100 -: 11/29/16 1200 11/29/16 1200 Assessment/Plan Assessment Summary: DEUCE/Acute Renal Failure Problem List: (1) Hyponatremia ICD Codes: E87.1 - Hypo-osmolality and hyponatremia Status: Acute (2) Leukocytosis ICD Codes: D72.829 - Elevated white blood cell count, unspecified Status: Acute (3) Alcoholism ICD Codes: F10.20 - Alcohol dependence, uncomplicated Status: Chronic (4) Macrocytic anemia ICD Codes: D53.9 - Nutritional anemia, unspecified Status: Chronic (5) CVA (cerebral vascular accident) ICD Codes: I63.9 - Cerebral infarction, unspecified Status: Acute (6) HTN (hypertension) ICD Codes: I10 - Essential (primary) hypertension (7) Renal failure ICD Codes: N19 - Unspecified kidney failure Status: Acute Plan Patient has significant improvement in the Creatinine. Urine out put is good. Not eating well, encourage oral intake. Continue IVF. Na. is better. Avoid Nephrotoxins. Problem Qualifiers (1) CVA (cerebral vascular accident): Qualified Codes: I63.311 - Cerebral infarction due to thrombosis of right middle cerebral artery (2) HTN (hypertension): Qualified Codes: I10 - Essential (primary) hypertension (3) Renal failure: Qualified Codes: N17.9 - Acute kidney failure, unspecified Ariana Tran MD Nov 29, 2016 16:08
[2016-11-29] MEDS: ATORVASTATIN 40 MG TAB PO SCH (20:12)
[2016-11-30] VITALS (7 sets, daily range): BP systolic 171–200; BP diastolic 81–89; PULSE 59–100; RESP 16–17; TEMP 97.7–98.6; O2SAT 95–98
[2016-11-30] MEDS: HEPARIN SODIUM - SQ 10,000 UNITS/ML VIAL SQ SCH ×3 (02:10→18:08)
[2016-11-30] MEDS: SODIUM BICARBONATE 8.4% INJ 75 MEQ in SODIUM CHLOR 0.45% 1000 ML INJ 1,000 ML IV SCH ×2 (02:10→18:07)
[2016-11-30] MEDS: cefTRIAXone INJ 1,000 MG in SODIUM CHLORIDE 0.9% INJ 100 ML IV SCH (02:10)
[2016-11-30] MEDS: RESP: ALBUTEROL 2.5 MG/3 ML NEB (SCH) NEB ×3 (03:27→21:52)
[2016-11-30] MEDS: RESP: ALBUTEROL 2.5 MG/IPRATROPIUM 0.5 MG NEB (SCH) NEB ×3 (07:50→15:07)
[2016-11-30] MEDS: INSULIN ASPART SUPPLEMENTAL SCALE SQ SCH ×4 (08:00→21:00)
[2016-11-30] MEDS: SODIUM CHLORIDE 0.9% FLUSH 5 ML FLUSH IV FLUSH SCH ×2 (09:00→21:00)
[2016-11-30] MEDS: CALCIUM/VITAMIN D 250 MG/125 U TAB PO SCH ×2 (09:20→21:00)
[2016-11-30] MEDS: THIAMINE HCL 100 MG TAB PO SCH (09:20)
[2016-11-30] MEDS: FOLIC ACID 1 MG TAB PO SCH (09:20)
[2016-11-30] MEDS: ASPIRIN 81 MG CHEW TAB PO SCH (09:20)
[2016-11-30] MEDS: MULTIVITAMINS/MINERALS THERAPEUTIC TAB PO SCH (09:20)
[2016-11-30 09:22] LABS: HEMATOCRIT 32.6 % (39.0-51.0); MEAN CELL VOLUME 99.1 FL (80.0-100.0); MEAN CORPUSCULAR HGB CONC 34.4 % (32.0-36.0); PLATELET COUNT 280 TH/MM3 (150-450); RED BLOOD COUNT 3.29 MIL/MM3 (4.50-5.90); RED CELL DISTRIBUTION WIDTH 12.7 % (11.6-17.2); REVIEW FLAG FINAL; WHITE BLOOD COUNT 6.9 TH/MM3 (4.0-11.0)
[2016-11-30 10:10] LABS: BICARBONATE 29.2 MEQ/L (21.0-32.0); POTASSIUM 4.9 MEQ/L (3.5-5.1)
--- NOTE | 2016-11-30 10:29 | HHI.FPPN ---
Subjective Remarks Mr. Montiel was seen this morning on rounds by medicine team. No acute events overnight, had several elevated BP's overnight. Patient is stating today that he wishes to leave with his brother and go back home to [place]. He states that his head feels "different". Denies CHICAS, blurry vision, dizziness, changes with movement. States it "just feels swollen." Nursing staff was bedside who reported he needs the help of 2 people to be able to ambulate to a chair. We discussed our concern for the patient leaving, as we deem it is unsafe due to severity of his stroke and inability to swallow solid foods. We discussed our concern for the possibility of having an aspiration pneumonia and dying as well as our concern for falls and having help to take care of his daily needs. Patient stated he did not care and was leaving as soon as his brother arrived. He gave us permission to speak to his brother. Currently denies CP, SOB, NVD. (Jonas Prince MD R1) Objective Vitals Vital Signs Date Time Temp Pulse Resp B/P (MAP) Pulse Ox O2 Delivery O2 Flow Rate FiO2 11/30/16 08:00 60 11/30/16 08:00 98.3 61 16 182/83 (116) 97 11/30/16 07:51 95 21 11/30/16 05:12 98.6 65 17 200/89 (126) 98 11/29/16 23:15 99.9 78 20 146/65 (92) 96 11/29/16 22:41 65 11/29/16 20:19 100 11/29/16 20:14 98.8 65 20 173/84 (113) 100 11/29/16 16:04 97.3 64 18 154/69 (97) 99 11/29/16 12:05 98.0 62 18 137/67 (90) 97 I/O 11/29/16 11/29/16 11/29/16 11/30/16 11/30/16 11/30/16 07:00 15:00 23:00 07:00 15:00 23:00 Intake Total 1228 ml 479 ml 656 ml 1144 ml Output Total 1400 ml 1700 ml 600 ml Balance -172 ml 479 ml -1044 ml 544 ml Intake Oral 480 ml 240 ml 120 ml IV Total 748 ml 479 ml 416 ml 1024 ml Output Urine Total 1400 ml 1700 ml 600 ml # Bowel Movements 1 1 (Jonas Prince MD R1) Result Diagram: 11/30/16 0852 11/30/16 0852 Objective Remarks GENERAL: resting in bed in NAD, no resp distress, nontoxic HEENT: NCAT, EOMI, no scleral icterus, no conjunctival injection. MMM. NECK: Supple, no meningeal signs. CV: RRR, S1 S2. No murmurs. CHEST/PULM: CTAB No retractions, no accessory muscle use. ABD/GI: +BS, soft, nontender, nondistended. EXT: 2+ DP pulses. No edema. No calf tenderness. : No CVAT. Perez catheter in place, draining clear yellow urine. NEURO: Awake, alert. SKIN: No rashes, no jaundice. (Jonas Prince MD R1) A/P Assessment and Plan Mr. Montiel is a 56 yo M who presents to [place] ED with suspected left sided stroke and renal failure: creatinine was 10.05 on admission but has resolved to 1.22 on 11/29. Discharge Planning Pending clinical improvement. Patient has poor po intake and is at risk for an adverse hypoglycemic event. He is self-pay from [id number] which adds a level of difficulty to making disposition arrangements. However, patient wants to leave the hospital on 11/30 with his brother to return to [place] (Jonas Prince MD R1) Attending Attestation Patient seen, examined, and discussed with Dr. Prince. I agree with assessment and management as documented and discussed with me. Pt continues to require max assist for transfer to chair. Discussed with patient the dangers in leaving the hospital prior to being medically stable, including risk of falls, aspiration pneumonia, , etc Anticipate patient will leave AMA tomorrow when his brother returns to [place]. (Deja Adams MD) Problem List: (1) CVA (cerebral vascular accident) ICD Codes: I63.9 - Cerebral infarction, unspecified Status: Acute Plan: Acute ischemic stroke * Continue aspirin 162 mg by mouth daily * Atorvastatin 40 mg by mouth at bedtime * Appreciate neurology and PM&R * PT/OT/Speech therapy evaluation: * PT: Recommend PT at rehabilitation * OT: Recommend OT at rehabilitation * ST: Recommend mechanical soft with chopped meats and thin liquids, patient will request speech therapy after discharge Imaging: * CT head 11/27/16: Ill-defined hypodensity in right basal ganglia centered about the posterior limb of the internal capsule which may reflect a lacunar infarct. * Brain MRI 11/27/16: acute infarction right basal ganglia; non-specific white- matter changes * Carotid artery US 11/27/16: Mild amount of plaque. No hemodynamically significant stenosis. * Head MRA 11/28/16: 1. Neither vertebral artery is identified. There are PICAs present, presumably the vertebrals terminate in a PICA. The basilar is not evident and presumed occluded/absent. This is possible congenital basis as both posterior cerebrals are sizable vessels. 2. The carotid circulation is widely patent. The anterior and middle cerebral circulation is widely patent. * Echo: 11/28/16: Normal left ventricular systolic function with EF of 55-60%, no definite regional wall motion abnormalities, normal left ventricular size (2) Renal failure ICD Codes: N19 - Unspecified kidney failure Status: Acute Plan: Initial Cr 10.05 w/ BUN 70. Improved to 0.88 on 11/30 Cocaine, amphetamine abuse present on UDS Perez placed; 2300mL out over past 24 hours -CPK improved from 708 on admission to 327 on 11/30 -Nephrology consulted; appreciate recs. -Switched to sodium bicarbonate at 70 mLs per hour per nephrology -Continue to trend BMP and CK Renal US: WNL. (3) HTN (hypertension) ICD Codes: I10 - Essential (primary) hypertension Plan: Impression: History of HTN - no recorded home medications in reconciled meds -Elevated BP overnight (170's - 200's SBP / 110's - 120's DBP) -Changing PRN Vasotec for >180 SBP (4) Alcoholism ICD Codes: F10.20 - Alcohol dependence, uncomplicated Status: Chronic Plan: Impression: Patient reports ~12 beers a night. MCV 99 on admission. No signs of withdrawal at this time -Continue CIWA protocol, most recent scores of 0 -Will give oral vitamin supplementation Of note, last drink 11/27/16 AM (5) Polysubstance abuse ICD Codes: F19.10 - Other psychoactive substance abuse, uncomplicated Status: Chronic Plan: Impression: No reported illicit substance use, but reports he was on "vacation". He denies any IV drug use. UDS positive for cocaine, amphetamines, and opiates -Normal echo (6) Abnormal urinalysis ICD Codes: R82.90 - Unspecified abnormal findings in urine Status: Acute Plan: Impression: UA with 36 WBC, few bacteria, nitrites negative, leukocyte esterase negative. Specimen catheterized WBC 12.4 on admission; anuria and Cr elevation on admission No growth on UCx x 48 hours Will d/c Ceftriaxone on 11/30 (received 3 doses) Adequate urine output for past 48 hours - will d/c Perez catheter (7) Hyponatremia ICD Codes: E87.1 - Hypo-osmolality and hyponatremia Status: Acute Plan: Slowly improved from 129 to 132 this AM. Continue IV fluid and monitor. (8) Macrocytic anemia ICD Codes: D53.9 - Nutritional anemia, unspecified Status: Chronic Plan: Hgb stable. Suspect secondary to alcohol abuse. (9) Fluid, Electrolytes, and Nutrition Plan: Fluids: Bicarbonate at 70ml/hr -management per Nephrology Nutrition: Per speech therapy recs, dietary consulted to help secondary to patient's poor by mouth intake (10) DVT PPX Plan: Heparin 5000 U q8hrs Bilateral SCD's (Jonas Prince MD R1) Problem Qualifiers (1) CVA (cerebral vascular accident): Qualified Codes: I63.311 - Cerebral infarction due to thrombosis of right middle cerebral artery (2) Renal failure: Qualified Codes: N17.9 - Acute kidney failure, unspecified (3) HTN (hypertension): Qualified Codes: I10 - Essential (primary) hypertension Jonas Prince MD R1 Nov 30, 2016 10:29 Deja Adams MD Nov 30, 2016 20:38
[2016-11-30 10:35] LABS: CKMB 2.7 NG/ML (0.5-3.6)
--- NOTE | 2016-11-30 10:41 | HHI.PR ---
Review/Management Daily Summary 11/30 much stronger left side irritable mra/mri seen, echo results noted as well as carotid us continue rehab care asa and medicine care, statin Subjective Subjective Comments No acute events reported No headache No chest pain No dyspnea Active Medications Current Medications Medications (Trade) Dose Ordered Sig/Mansi Route Start Time Stop Time Status Last Admin (NS Flush) 2 ml BID IV FLUSH 11/27/16 21:00 11/28/16 09:53 (NS Flush) 2 ml UNSCH PRN IV FLUSH 11/27/16 18:45 (Aspirin Chew) 162 mg DAILY PO 11/28/16 09:00 11/30/16 09:20 (NovoLOG SUPPLEMENTAL SCALE) 1 ACHS SQ 11/27/16 21:00 (Glucagon Inj) 1 mg UNSCH PRN OTHER 11/27/16 18:45 (Heparin Inj) 5,000 units Q8H SQ 11/27/16 19:00 11/30/16 02:10 (Folate) 1 mg DAILY PO 11/28/16 09:00 12/03/16 08:59 11/30/16 09:20 (Vitamin B1) 100 mg DAILY PO 11/28/16 09:00 11/30/16 09:20 (Theragran M Tab) 1 tab DAILY PO 11/28/16 09:00 12/03/16 08:59 11/30/16 09:20 (Zofran Inj) 4 mg Q6H PRN IV 11/27/16 19:15 (Romazicon Inj) 0.2 mg Q1M PRN IV PUSH 11/27/16 19:15 (Ativan) 1 mg Q4H PRN PO 11/27/16 19:15 (Ativan Inj) 1 mg Q4H PRN IV PUSH 11/27/16 19:15 (Ativan) 2 mg Q2H PRN PO 11/27/16 19:15 (Ativan Inj) 2 mg Q2H PRN IV PUSH 11/27/16 19:15 (Ativan Inj) 2 mg Q1H PRN IV PUSH 11/27/16 19:15 (Ativan Inj) 2 mg Q15M PRN IV PUSH 11/27/16 19:15 (Lipitor) 40 mg HS PO 11/27/16 21:00 11/29/16 20:12 Ceftriaxone Sodium 1000 mg/ Sodium Chloride 100 ml @ 200 mls/hr Q24H IV 11/28/16 02:00 11/30/16 02:10 (Albuterol Neb) 2.5 mg Q2HR NEB PRN NEB 11/28/16 07:45 (Albuterol Neb) 2.5 mg Q8HR ALT NEB NEB 11/28/16 12:00 11/29/16 20:17 Sodium Bicarbonate 75 meq/Sodium Chloride 1,075 ml @ 70 mls/hr [id number] IV 11/28/16 19:00 11/30/16 02:10 (Oscal-D 250-125) 500 mg Q12HR PO 11/28/16 21:00 11/30/16 09:20 (Vasotec Inj) 1.25 mg Q6H PRN IV 11/28/16 15:00 (D50w (Syr) Inj) 50 ml UNSCH PRN IV PUSH 11/28/16 16:45 11/28/16 16:55 (Duoneb Neb) 1 ampule Q8HR NEB NEB 11/29/16 00:00 11/29/16 07:52 Allergies Allergies Coded Allergies No Known Allergies (Unverified11/27/16) Exam I&O / VS Vital Signs Date Time Temp Pulse Resp B/P (MAP) Pulse Ox O2 Delivery O2 Flow Rate FiO2 11/30/16 08:00 60 11/30/16 08:00 98.3 61 16 182/83 (116) 97 11/30/16 07:51 95 21 11/30/16 05:12 98.6 65 17 200/89 (126) 98 11/29/16 23:15 99.9 78 20 146/65 (92) 96 11/29/16 22:41 65 11/29/16 20:19 100 11/29/16 20:14 98.8 65 20 173/84 (113) 100 11/29/16 16:04 97.3 64 18 154/69 (97) 99 11/29/16 12:05 98.0 62 18 137/67 (90) 97 Respiratory: Lungs CTA, Non-labored respirations, BS equal, Coarse breath sounds Cardiology: Normal rate, Normal peripheral perfusion, Regular Rhythm Musculoskeletal: Swelling (right great toe) Objective Micro and Labs Laboratory Tests Test 11/29/16 12:00 11/30/16 08:52 White Blood Count 9.3 6.9 Red Blood Count 3.11 3.29 Hemoglobin 10.7 11.2 Hematocrit 30.9 32.6 Mean Corpuscular Volume 99.2 99.1 Mean Corpuscular Hemoglobin 34.5 34.0 Mean Corpuscular Hemoglobin Concent 34.7 34.4 Red Cell Distribution Width 12.6 12.7 Platelet Count 250 280 Mean Platelet Volume 7.8 8.1 Neutrophils (%) (Auto) 75.2 Lymphocytes (%) (Auto) 11.3 Monocytes (%) (Auto) 13.1 Eosinophils (%) (Auto) 0.2 Basophils (%) (Auto) 0.2 Neutrophils # (Auto) 7.0 Lymphocytes # (Auto) 1.1 Monocytes # (Auto) 1.2 Eosinophils # (Auto) 0.0 Basophils # (Auto) 0.0 CBC Comment DIFF FINAL Differential Comment Blood Urea Nitrogen 38 22 Creatinine 1.22 0.88 Random Glucose 94 95 Calcium Level 8.7 8.9 Phosphorus Level 2.5 Sodium Level 129 132 Potassium Level 4.8 4.9 Chloride Level 97 98 Carbon Dioxide Level 24.5 29.2 Anion Gap 8 5 Estimat Glomerular Filtration Rate 61 89 Total Creatine Kinase 327 Date/Time Source Procedure Growth Status 11/27/16 19:05 Urine Clean Catch Urine Culture - Final NO GROWTH IN 48 HOURS. Complete Kodi Parra MD Nov 30, 2016 10:41
[2016-11-30] MEDS: ATORVASTATIN 40 MG TAB PO SCH (21:00)
[2016-12-01 00:30] VITALS: BP 168/78; PULSE 80; RESP 18; TEMP 99.3; O2SAT 96
[2016-12-01] MEDS: RESP: ALBUTEROL 2.5 MG/IPRATROPIUM 0.5 MG NEB (SCH) NEB ×3 (00:55→16:00)
[2016-12-01] MEDS: HEPARIN SODIUM - SQ 10,000 UNITS/ML VIAL SQ SCH ×3 (03:00→19:00)
[2016-12-01] MEDS: RESP: ALBUTEROL 2.5 MG/3 ML NEB (SCH) NEB ×3 (04:00→20:00)
[2016-12-01] MEDS: BENZONATATE 100 MG CAP PO PRN ×3 (05:06→22:46)
[2016-12-01 06:22] VITALS: PULSE 72
[2016-12-01 08:00] VITALS: BP 161/83; PULSE 71; RESP 20; TEMP 98.7; O2SAT 97
[2016-12-01] MEDS: INSULIN ASPART SUPPLEMENTAL SCALE SQ SCH ×4 (08:00→21:00)
--- NOTE | 2016-12-01 08:46 | HHI.FPPN ---
Subjective Remarks Pt was on the phone ordering breakfast this morning. He still insists on leaving the hospital today once his brother arrives. He understands that he needs physical therapy and states that he will continue in [place]. He requested a copy of his medical records. He complained of constant non- productive cough that kept him up all night. (Beverly Lala MD R2) Objective Vitals Vital Signs Date Time Temp Pulse Resp B/P (MAP) Pulse Ox O2 Delivery O2 Flow Rate FiO2 12/01/16 06:22 72 12/01/16 00:30 99.3 80 18 168/78 (108) 96 11/30/16 21:53 98 21 11/30/16 21:00 98.6 100 17 171/81 (111) 97 11/30/16 16:00 98.1 66 17 188/88 (121) 97 11/30/16 12:00 97.7 59 17 177/84 (115) 98 I/O 11/30/16 11/30/16 11/30/16 12/01/16 12/01/16 12/01/16 07:00 15:00 23:00 07:00 15:00 23:00 Intake Total 1144 ml 480 ml 120 ml 360 ml Output Total 600 ml 850 ml 400 ml 450 ml Balance 544 ml -370 ml -280 ml -90 ml Intake Oral 120 ml 480 ml 120 ml 360 ml IV Total 1024 ml Output Urine Total 600 ml 850 ml 400 ml 450 ml # Bowel Movements 1 (Beverly Lala MD R2) Result Diagram: 11/30/16 0852 11/30/16 0852 Objective Remarks GENERAL: resting in bed in NAD, no resp distress, nontoxic HEENT: NCAT, EOMI, no scleral icterus, no conjunctival injection. MMM. NECK: Supple, no meningeal signs. CV: RRR, S1 S2. No murmurs. CHEST/PULM: CTAB No retractions, no accessory muscle use. ABD/GI: +BS, soft, nontender, nondistended. EXT: 2+ DP pulses. No edema. No calf tenderness. NEURO: Awake, alert. SKIN: No rashes, no jaundice. (Beverly Lala MD R2) A/P Assessment and Plan Mr. Montiel is a 56 yo M who presents to [place] ED with suspected left sided stroke and renal failure: creatinine was 10.05 on admission but resolved to 1.22 on 11/29 and has remained normal. Discharge Planning Pending clinical improvement. He is self-pay from [id number] which adds a level of difficulty to making disposition arrangements. However, patient has not changed his mind about leaving against medical advice as soon as his brother arrives. He is planning to return to [place]. (Beverly Lala MD R2) Attending Attestation Patient seen and examined, discussed with resident team. I agree with assessment and management as documented and discussed with me. Pt working to make arrangements to return to [place]. He understands that he will be leaving AMA if he does so today, as he is requiring MAX assist. (Deja Adams MD) Problem List: (1) CVA (cerebral vascular accident) ICD Codes: I63.9 - Cerebral infarction, unspecified Status: Acute Plan: Acute ischemic stroke * Continue aspirin 162 mg by mouth daily * Atorvastatin 40 mg by mouth at bedtime * Appreciate neurology and PM&R * PT/OT/Speech therapy evaluation: * PT: Recommend PT at rehabilitation * OT: Recommend OT at rehabilitation * ST: Recommend mechanical soft with chopped meats and thin liquids, patient will require speech therapy after discharge Imaging: * CT head 11/27/16: Ill-defined hypodensity in right basal ganglia centered about the posterior limb of the internal capsule which may reflect a lacunar infarct. * Brain MRI 11/27/16: acute infarction right basal ganglia; non-specific white- matter changes * Carotid artery US 11/27/16: Mild amount of plaque. No hemodynamically significant stenosis. * Head MRA 11/28/16: 1. Neither vertebral artery is identified. There are PICAs present, presumably the vertebrals terminate in a PICA. The basilar is not evident and presumed occluded/absent. This is possible congenital basis as both posterior cerebrals are sizable vessels. 2. The carotid circulation is widely patent. The anterior and middle cerebral circulation is widely patent. * Echo: 11/28/16: Normal left ventricular systolic function with EF of 55-60%, no definite regional wall motion abnormalities, normal left ventricular size (2) Renal failure ICD Codes: N19 - Unspecified kidney failure Status: Resolved Plan: Initial Cr 10.05 w/ BUN 70. Improved to 0.88 on 11/30, stable Cocaine, amphetamine abuse present on UDS -CPK improved from 708 on admission to 327 on 11/30 -Nephrology consulted; appreciate recs. -Switched to half normal saline with sodium bicarbonate at 70 mLs per hour per nephrology -Continue to trend BMP and CK Renal US: WNL. (3) HTN (hypertension) ICD Codes: I10 - Essential (primary) hypertension Plan: Impression: History of HTN - no recorded home medications in reconciled meds -Elevated BP overnight (170's - 200's SBP / 110's - 120's DBP) -Changing PRN to Vasotec for >180 SBP (4) Alcoholism ICD Codes: F10.20 - Alcohol dependence, uncomplicated Status: Chronic Plan: Impression: Patient reports ~12 beers a night. Of note, last drink am. MCV 99 on admission. No signs of withdrawal at this time -Discontinue CIWA protocol, most recent scores of 0 -Will give oral vitamin supplementation (5) Polysubstance abuse ICD Codes: F19.10 - Other psychoactive substance abuse, uncomplicated Status: Chronic Plan: Impression: No reported illicit substance use, but reports he was on "vacation". He denies any IV drug use. UDS positive for cocaine, amphetamines, and opiates -Normal echo (6) Hyponatremia ICD Codes: E87.1 - Hypo-osmolality and hyponatremia Status: Acute Plan: Slowly improving, 131 this am Continue IV fluid and monitor (7) Macrocytic anemia ICD Codes: D53.9 - Nutritional anemia, unspecified Status: Chronic Plan: Hgb stable. Suspect secondary to alcohol abuse. (8) Fluid, Electrolytes, and Nutrition Plan: Fluids: Half normal saline with bicarbonate at 70ml/hr -management per Nephrology Nutrition: Per speech therapy recs, dietary recommends heart healthy diet with Enlive BID (9) DVT PPX Plan: Heparin 5000 U q8hrs Bilateral SCD's (Beverly Laal MD R2) Problem Qualifiers (1) CVA (cerebral vascular accident): Qualified Codes: I63.311 - Cerebral infarction due to thrombosis of right middle cerebral artery (2) Renal failure: Qualified Codes: N17.9 - Acute kidney failure, unspecified (3) HTN (hypertension): Qualified Codes: I10 - Essential (primary) hypertension Beverly Lala MD R2 Dec 01, 2016 08:46 Deja Adams MD Dec 01, 2016 21:17
[2016-12-01] MEDS: SODIUM CHLORIDE 0.9% FLUSH 5 ML FLUSH IV FLUSH SCH ×2 (09:00→21:00)
[2016-12-01] MEDS: MULTIVITAMINS/MINERALS THERAPEUTIC TAB PO SCH (10:25)
[2016-12-01] MEDS: THIAMINE HCL 100 MG TAB PO SCH (10:25)
[2016-12-01] MEDS: CALCIUM/VITAMIN D 250 MG/125 U TAB PO SCH ×2 (10:25→22:49)
[2016-12-01] MEDS: FOLIC ACID 1 MG TAB PO SCH (10:25)
[2016-12-01] MEDS: ASPIRIN 81 MG CHEW TAB PO SCH (10:26)
[2016-12-01 10:27] LABS: BICARBONATE 28.1 MEQ/L (21.0-32.0)
[2016-12-01 10:39] LABS: HEMATOCRIT 33.6 % (39.0-51.0); MEAN CELL VOLUME 100.5 FL (80.0-100.0); MEAN CORPUSCULAR HEMOGLOBIN 33.5 PG (27.0-34.0); MEAN CORPUSCULAR HGB CONC 33.3 % (32.0-36.0); PLATELET COUNT 286 TH/MM3 (150-450); RED BLOOD COUNT 3.34 MIL/MM3 (4.50-5.90); RED CELL DISTRIBUTION WIDTH 12.3 % (11.6-17.2); REVIEW FLAG FINAL; WHITE BLOOD COUNT 9.6 TH/MM3 (4.0-11.0)
[2016-12-01 11:32] LABS: CKMB 1.4 NG/ML (0.5-3.6)
[2016-12-01] MEDS: SODIUM BICARBONATE 8.4% INJ 75 MEQ in SODIUM CHLOR 0.45% 1000 ML INJ 1,000 ML IV SCH (11:53)
[2016-12-01 12:15] VITALS: BP 164/79; PULSE 67; RESP 20; TEMP 98.8; O2SAT 100
[2016-12-01 16:00] VITALS: BP 181/90; PULSE 75; RESP 20; TEMP 97.7; O2SAT 98
[2016-12-01] MEDS: ACETAMINOPHEN 325 MG TAB PO PRN ×2 (18:17→22:46)
[2016-12-01] MEDS: SODIUM CHLOR 0.9% 1000 ML INJ 1,000 ML IV SCH ×2 (18:24→21:30)
[2016-12-01] MEDS: ENALAPRILAT 1.25 MG/ML VIAL IV PRN (18:25)
[2016-12-01 20:40] VITALS: BP 174/78; PULSE 73; RESP 19; TEMP 98.2; O2SAT 97
[2016-12-01] MEDS: ATORVASTATIN 40 MG TAB PO SCH (22:45)
[2016-12-01] MEDS: guaiFENesin E.R. 600 MG TAB PO SCH (22:50)
[2016-12-02 00:15] VITALS: BP 140/75; PULSE 69; RESP 21; TEMP 98.1; O2SAT 96
[2016-12-02] MEDS: HEPARIN SODIUM - SQ 10,000 UNITS/ML VIAL SQ SCH ×2 (03:00→13:40)
[2016-12-02] MEDS: BENZONATATE 100 MG CAP PO PRN (03:04)
[2016-12-02 04:00] VITALS: BP 196/91; PULSE 67; RESP 18; TEMP 97.3; O2SAT 95
[2016-12-02] MEDS: RESP: ALBUTEROL 2.5 MG/3 ML NEB (SCH) NEB ×2 (04:00→11:42)
[2016-12-02] MEDS: ENALAPRILAT 1.25 MG/ML VIAL IV PRN (05:03)
[2016-12-02 08:00] VITALS: BP 178/86; PULSE 62; RESP 20; TEMP 98; O2SAT 97
[2016-12-02] MEDS: INSULIN ASPART SUPPLEMENTAL SCALE SQ SCH ×2 (08:00→12:00)
[2016-12-02] MEDS: RESP: ALBUTEROL 2.5 MG/IPRATROPIUM 0.5 MG NEB (SCH) NEB ×2 (08:00)
[2016-12-02] MEDS ORDERED: cloNIDine HCL 0.1 MG TAB PO PRN (08:00)
[2016-12-02] MEDS: SODIUM CHLORIDE 0.9% FLUSH 5 ML FLUSH IV FLUSH SCH (09:00)
[2016-12-02] MEDS: ACETAMINOPHEN 325 MG TAB PO PRN (09:37)
[2016-12-02] MEDS: CALCIUM/VITAMIN D 250 MG/125 U TAB PO SCH (09:37)
[2016-12-02] MEDS: SODIUM CHLOR 0.9% 1000 ML INJ 1,000 ML IV SCH (09:37)
[2016-12-02] MEDS: MULTIVITAMINS/MINERALS THERAPEUTIC TAB PO SCH (09:38)
[2016-12-02] MEDS: FOLIC ACID 1 MG TAB PO SCH (09:38)
[2016-12-02] MEDS: guaiFENesin E.R. 600 MG TAB PO SCH (09:38)
[2016-12-02] MEDS: THIAMINE HCL 100 MG TAB PO SCH (09:38)
[2016-12-02] MEDS: ASPIRIN 81 MG CHEW TAB PO SCH (09:38)
[2016-12-02 11:29] LABS: HEMATOCRIT 31.2 % (39.0-51.0); MEAN CELL VOLUME 99.8 FL (80.0-100.0); MEAN CORPUSCULAR HEMOGLOBIN 33.7 PG (27.0-34.0); MEAN CORPUSCULAR HGB CONC 33.7 % (32.0-36.0); PLATELET COUNT 324 TH/MM3 (150-450); RED BLOOD COUNT 3.13 MIL/MM3 (4.50-5.90); RED CELL DISTRIBUTION WIDTH 12.9 % (11.6-17.2); REVIEW FLAG FINAL
--- NOTE | 2016-12-02 11:54 | HHI.FPPN ---
Subjective Remarks Mr. Montiel was seen on rounds today by medicine team. No acute events overnight with elevated BP overnight (up to 190's SBP, 120's DBP). Patient is still demanding to leave the hospital. He states "I'm not doing any good just laying in this bed. I'm tired of it and want to go to [place] so I have people to talk to." Patient is upset with his brother for not having already picked him up. Patient states he has made arrangements to be hospitalized once he gets back to [place]. (Jonas Prince MD R1) Objective Vitals Vital Signs Date Time Temp Pulse Resp B/P (MAP) Pulse Ox O2 Delivery O2 Flow Rate FiO2 12/02/16 08:00 98.0 62 20 178/86 (116) 97 12/02/16 04:00 97.3 67 18 196/91 (126) 95 12/02/16 00:15 98.1 69 21 140/75 (96) 96 12/01/16 20:40 98.2 73 19 174/78 (110) 97 12/01/16 16:00 97.7 75 20 181/90 (120) 98 12/01/16 12:15 98.8 67 20 164/79 (107) 100 I/O 12/01/16 12/01/16 12/01/16 12/02/16 12/02/16 12/02/16 07:00 15:00 23:00 07:00 15:00 23:00 Intake Total 360 ml 720 ml 1200 ml Output Total 450 ml 600 ml 1200 ml Balance -90 ml 720 ml 600 ml -1200 ml Intake Oral 360 ml 720 ml 1200 ml Output Urine Total 450 ml 600 ml 1200 ml # Voids 3 # Bowel Movements 1 0 (Jonas Prince MD R1) Result Diagram: 12/02/16 1000 12/01/16 0926 Objective Remarks GENERAL: resting in bed in NAD, no resp distress, nontoxic HEENT: NCAT, EOMI, no scleral icterus, no conjunctival injection. MMM. NECK: Supple, no meningeal signs. CV: RRR, S1 S2. No murmurs. CHEST/PULM: CTAB No retractions, no accessory muscle use. ABD/GI: +BS, soft, nontender, nondistended. EXT: 2+ DP pulses. No edema. No calf tenderness. NEURO: Awake, alert. 4+/5 strength in LUE, LLE - significantly improved from admission. Continues to have sensation loss on L side of face, LUE, LLL. SKIN: No rashes, no jaundice. (Jonas Prince MD R1) A/P Assessment and Plan Mr. Montiel is a 56 yo M who presents to [place] ED with suspected left sided stroke and renal failure: creatinine was 10.05 on admission but resolved to 1.22 on 11/29 and has remained normal. Discharge Planning Pending clinical improvement. He is self-pay from [id number] which adds a level of difficulty to making disposition arrangements. However, patient has not changed his mind about leaving against medical advice as soon as his brother arrives. He is planning to return to [place]. Brother is supposedly on the way to the hospital. (Jonas Prince MD R1) Attending Attestation Patient seen, examined, and discussed with resident team. I agree with assessment and management as documented and discussed with me. Pt has some improvements in his strength. Despite these gains in the hospital, he is adamant about leaving. He understands the risks as documented previously with leaving Against Medical Advice. (Deja Adams MD) Problem List: (1) CVA (cerebral vascular accident) ICD Codes: I63.9 - Cerebral infarction, unspecified Status: Acute Plan: Acute ischemic stroke * Continue aspirin 162 mg by mouth daily * Atorvastatin 40 mg by mouth at bedtime * Appreciate neurology and PM&R * Improved strength in UE and LE. 4+/5 * PT/OT/Speech therapy evaluation: * PT: Recommend PT at rehabilitation * OT: Recommend OT at rehabilitation * ST: Recommend mechanical soft with chopped meats and thin liquids, patient will require speech therapy after discharge Imaging: * CT head 11/27/16: Ill-defined hypodensity in right basal ganglia centered about the posterior limb of the internal capsule which may reflect a lacunar infarct. * Brain MRI 11/27/16: acute infarction right basal ganglia; non-specific white- matter changes * Carotid artery US 11/27/16: Mild amount of plaque. No hemodynamically significant stenosis. * Head MRA 11/28/16: 1. Neither vertebral artery is identified. There are PICAs present, presumably the vertebrals terminate in a PICA. The basilar is not evident and presumed occluded/absent. This is possible congenital basis as both posterior cerebrals are sizable vessels. 2. The carotid circulation is widely patent. The anterior and middle cerebral circulation is widely patent. * Echo: 11/28/16: Normal left ventricular systolic function with EF of 55-60%, no definite regional wall motion abnormalities, normal left ventricular size (2) Renal failure ICD Codes: N19 - Unspecified kidney failure Status: Resolved Plan: Initial Cr 10.05 w/ BUN 70. Improved to 0.88 on 11/30, stable Cocaine, amphetamine abuse present on UDS -CPK improved from 708 on admission to 327 on 11/30 -Nephrology consulted; appreciate recs. -Switched to half normal saline with sodium bicarbonate at 70 mLs per hour per nephrology -Continue to trend BMP and CK Renal US: WNL. (3) HTN (hypertension) ICD Codes: I10 - Essential (primary) hypertension Plan: Impression: History of HTN - no recorded home medications in reconciled meds -Elevated BP overnight (170's - 200's SBP / 110's - 120's DBP) -Changing PRN to Vasotec for >180 SBP -Restarting home lisinopril (4) Alcoholism ICD Codes: F10.20 - Alcohol dependence, uncomplicated Status: Chronic Plan: Impression: Patient reports ~12 beers a night. Of note, last drink am. MCV 99 on admission. No signs of withdrawal at this time -Discontinue CIWA protocol, most recent scores of 0 -Will give oral vitamin supplementation (5) Polysubstance abuse ICD Codes: F19.10 - Other psychoactive substance abuse, uncomplicated Status: Chronic Plan: Impression: No reported illicit substance use, but reports he was on "vacation". He denies any IV drug use. UDS positive for cocaine, amphetamines, and opiates -Normal echo (6) Hyponatremia ICD Codes: E87.1 - Hypo-osmolality and hyponatremia Status: Acute Plan: Na 131 this am - stable from yesterday Continue IV fluid and monitor (7) Macrocytic anemia ICD Codes: D53.9 - Nutritional anemia, unspecified Status: Chronic Plan: Hgb stable. Suspect secondary to alcohol abuse. (8) Fluid, Electrolytes, and Nutrition Plan: Fluids: Half normal saline with bicarbonate at 70ml/hr -management per Nephrology Nutrition: Per speech therapy recs, dietary recommends heart healthy diet with Enlive BID (9) DVT PPX Plan: Heparin 5000 U q8hrs Bilateral SCD's (Jonas Prince MD R1) Problem Qualifiers (1) CVA (cerebral vascular accident): Qualified Codes: I63.311 - Cerebral infarction due to thrombosis of right middle cerebral artery (2) Renal failure: Qualified Codes: N17.9 - Acute kidney failure, unspecified (3) HTN (hypertension): Qualified Codes: I10 - Essential (primary) hypertension Jonas Prince MD R1 Dec 02, 2016 11:54 Deja Adams MD Dec 02, 2016 20:15
[2016-12-02 12:00] VITALS: BP 169/83; PULSE 75; RESP 20; TEMP 98.3; O2SAT 98
[2016-12-02 12:00] LABS: BICARBONATE 27.3 MEQ/L (21.0-32.0); POTASSIUM 3.3 MEQ/L (3.5-5.1)
[2016-12-02 12:30] VITALS: PULSE 58
[2016-12-02] MEDS ORDERED: POTASSIUM CHLORIDE 10 MEQ CONTROLLED RELEASE TAB PO ONE (13:15)
[2016-12-02] MEDS ORDERED: LISINOPRIL 20 MG TAB PO SCH (13:15)
--- NOTE | 2016-12-02 13:42 | PD.AMA ---
Against Medical Advice Note Diagnosis: (1) CVA (cerebral vascular accident) Discharge Disposition: Against Medical Advice Pt Condition on Discharge: Guarded AMA Statement Patient Kosta Montiel has decided to leave the hospital against medical advice. This patient has the capacity to refuse care and understands the risks of leaving, including permanent disability and/or , and has had an opportunity to ask questions about his condition. The patient has been informed that he may return for care at any time, and follow up has been arranged/ advised. Bart David MD, R3 Dec 02, 2016 13:42
[2016-12-02] MEDS ORDERED: ASPI81CH25 PO (13:49)
[2016-12-02] MEDS ORDERED: LISI40TA PO (13:49)
[2016-12-02] MEDS ORDERED: ATOR40TA16 PO (13:49)
[2016-12-02] MEDS ORDERED: METO25TA3 PO (13:49)
--- NOTE | 2016-12-19 13:27 | HHI.DS ---
Discharge Summary Admission Date Nov 27, 2016 at 17:21 Admitting Diagnosis stroke, renal failure (1) CVA (cerebral vascular accident) Diagnosis: Principal Plan: Acute ischemic stroke * Continue aspirin 162 mg by mouth daily * Atorvastatin 40 mg by mouth at bedtime * Appreciate neurology and PM&R * Improved strength in UE and LE. 4+/5 * PT/OT/Speech therapy evaluation: * PT: Recommend PT at rehabilitation * OT: Recommend OT at rehabilitation * ST: Recommend mechanical soft with chopped meats and thin liquids, patient will require speech therapy after discharge Imaging: * CT head 11/27/16: Ill-defined hypodensity in right basal ganglia centered about the posterior limb of the internal capsule which may reflect a lacunar infarct. * Brain MRI 11/27/16: acute infarction right basal ganglia; non-specific white- matter changes * Carotid artery US 11/27/16: Mild amount of plaque. No hemodynamically significant stenosis. * Head MRA 11/28/16: 1. Neither vertebral artery is identified. There are PICAs present, presumably the vertebrals terminate in a PICA. The basilar is not evident and presumed occluded/absent. This is possible congenital basis as both posterior cerebrals are sizable vessels. 2. The carotid circulation is widely patent. The anterior and middle cerebral circulation is widely patent. * Echo: 11/28/16: Normal left ventricular systolic function with EF of 55-60%, no definite regional wall motion abnormalities, normal left ventricular size ICD Codes: I63.9 - Cerebral infarction, unspecified Status: Acute (2) Renal failure Diagnosis: Secondary Plan: Initial Cr 10.05 w/ BUN 70. Improved to 0.88 on 11/30, stable Cocaine, amphetamine abuse present on UDS -CPK improved from 708 on admission to 327 on 11/30 -Nephrology consulted; appreciate recs. -Switched to half normal saline with sodium bicarbonate at 70 mLs per hour per nephrology -Continue to trend BMP and CK Renal US: WNL. ICD Codes: N19 - Unspecified kidney failure Status: Resolved (3) HTN (hypertension) Diagnosis: Secondary Plan: Impression: History of HTN - no recorded home medications in reconciled meds -Elevated BP overnight (170's - 200's SBP / 110's - 120's DBP) -Changing PRN to Vasotec for >180 SBP -Restarting home lisinopril ICD Codes: I10 - Essential (primary) hypertension (4) Alcoholism Diagnosis: Secondary Plan: Impression: Patient reports ~12 beers a night. Of note, last drink am. MCV 99 on admission. No signs of withdrawal at this time -Discontinue CIWA protocol, most recent scores of 0 -Will give oral vitamin supplementation ICD Codes: F10.20 - Alcohol dependence, uncomplicated Status: Chronic (5) Polysubstance abuse Diagnosis: Secondary Plan: Impression: No reported illicit substance use, but reports he was on "vacation". He denies any IV drug use. UDS positive for cocaine, amphetamines, and opiates -Normal echo ICD Codes: F19.10 - Other psychoactive substance abuse, uncomplicated Status: Chronic Brief History Mr. Montiel is a 56 yo M with PMH of HTN, tobacco abuse, and alcohol abuse who presents to [facility] with concern for loss of strength and sensation in left upper and lower extremity. Patient reports that yesterday afternoon he fell and hit the left side of his face; when he awoke he was not able to move the left side of his body and it was "numb" and "fell asleep." Patient is able to talk normally, does not report any difficulty moving his facial muscles or talking. Patient does not report change in vision following fall. Patient reports that he believes he had a stroke; he thought that his symptoms would resolve initially so as not very worried initially. Patient states that several friends were nearby when he fell; he reportedly was unconscious for unspecified period of time. Patient reportedly has been dizzy for the past several months and more so than usual for the past several days, but does not report specific symptoms such as sudden dizziness/palpitations preceding his fall. Patient estimates that his fall occurred in early afternoon around approximately 2:30 PM. Patient was able to urinate after fall; he states that his last urination was last night. Patient has not had a bowel movement past 2-3 days; he states that this is normal for him and he sometimes goes one week without a bowel movement. Patient does not report chest pain, shortness of breath, or nausea/ vomiting at this time. Regarding patient's history of smoking, he reports ~1/2 PPD. Patient reports drinking ~12 beers a day. Patient reports that he is visiting from [place] and that he plans to travel back to [place] as soon as possible. Patient states that he saw a physician in [place] for which he received lisinopril and atenolol prescriptions. Patient requests that we enable him to call his brother while hospitalized: [phone] PE at Discharge GENERAL: resting in bed in NAD, no resp distress, nontoxic HEENT: NCAT, EOMI, no scleral icterus, no conjunctival injection. MMM. NECK: Supple, no meningeal signs. CV: RRR, S1 S2. No murmurs. CHEST/PULM: CTAB No retractions, no accessory muscle use. ABD/GI: +BS, soft, nontender, nondistended. EXT: 2+ DP pulses. No edema. No calf tenderness. NEURO: Awake, alert. 4+/5 strength in LUE, LLE - significantly improved from admission. Continues to have sensation loss on L side of face, LUE, LLL. SKIN: No rashes, no jaundice. Hospital Course Mr. Montiel is a 56 yo M who presented to [facility] ED on 11/27 with suspected left sided stroke and renal failure: creatinine was 10.05 on admission but resolved to 1.22 on 11/29 . Imaging on admission were as follows: CT head 11/27/16: Ill-defined hypodensity in right basal ganglia centered about the posterior limb of the internal capsule which may reflect a lacunar infarct. * Brain MRI 11/27/16: acute infarction right basal ganglia; non-specific white- matter changes * Carotid artery US 11/27/16: Mild amount of plaque. No hemodynamically significant stenosis. * Head MRA 11/28/16: 1. Neither vertebral artery is identified. There are PICAs present, presumably the vertebrals terminate in a PICA. The basilar is not evident and presumed occluded/absent. This is possible congenital basis as both posterior cerebrals are sizable vessels. 2. The carotid circulation is widely patent. The anterior and middle cerebral circulation is widely patent. * Echo: 11/28/16: Normal left ventricular systolic function with EF of 55-60%, no definite regional wall motion abnormalities, normal left ventricular size Patient was started on aspirin 162 mg by mouth daily and Atorvastatin 40 mg by mouth at bedtime. Patient had PT/OT working with him, but the day after admission the patient desired to return home to [place]. The medicine team informed him that if he left it would have to be AMA due to his inability to ambulate and concern for his safety. Patient had his brother pick him up on and left AMA. Pt Condition on Discharge: Fair Discharge Instructions Speech Therapy-Diet Recommends: Mechanical Soft, Chopped Meat w/Jonas Ferrer MD R1 Dec 19, 2016 13:27
== END 2016-12-02 14:29 | disposition left against medical advice (07) | DRG 65 ==
LOC: NEPC 15:03 → NEDA 17:21 → N05B 21:14
PROVIDERS: ADMIT Family Medicine; ATTEND Family Medicine
DX: I63.8 Other cerebral infarction (principal); N17.9 Acute kidney failure, unspecified; E87.2 Acidosis; M62.82 Rhabdomyolysis; E87.1 Hypo-osmolality and hyponatremia; G81.94 Hemiplegia, unspecified affecting left nondominant side; R47.1 Dysarthria and anarthria; E16.2 Hypoglycemia, unspecified; J44.9 Chronic obstructive pulmonary disease, unspecified; I10 Essential (primary) hypertension; G89.29 Other chronic pain; M54.9 Dorsalgia, unspecified; T46.4X6A Underdosing of angiotensin-converting-enzyme inhibitors, initial encounter; T44.7X6A Underdosing of beta-adrenoreceptor antagonists, initial encounter; G47.00 Insomnia, unspecified; E86.0 Dehydration; R82.90 Unspecified abnormal findings in urine; D53.9 Nutritional anemia, unspecified; F10.20 Alcohol dependence, uncomplicated; F14.10 Cocaine abuse, uncomplicated; F15.10 Other stimulant abuse, uncomplicated; F17.210 Nicotine dependence, cigarettes, uncomplicated; Z81.1 Family history of alcohol abuse and dependence; Z82.3 Family history of stroke; Z91.128 Patient's intentional underdosing of medication regimen for other reason
CPT/HCPCS: 70450; 70544; 70551; 71010; 72040; 74000; 76775; 80048; 80053; 80061; 80307; 81001; 82550; 82552; 82947; 82948; 83036; 83735; 84100; 84484; 85025; 85027; 85610; 85730; 87086; 93005; 93306; 93880; 94150; 94640; 94664; J0696; J1644; J1815; J7030; J7040; J7613